=== PATIENT | female | born 1985 | race Caucasian/White ===

== ENCOUNTER → 2020-05-10 13:35 | Outpatient (BNVA) | payer MEDICAID, SELFPAY | PROVIDERS: PCP Internal Medicine; Visit Provider Internal Medicine Pulmonary Disease | DX: J45.50 Severe persistent asthma, uncomplicated (principal); Z91.09 Other allergy status, other than to drugs and biological substances | CPT/HCPCS: 99212 ==

== ENCOUNTER 2020-06-25 12:28 | Outpatient (REF) | payer MEDICAID, SELFPAY | END 2020-06-25 12:29 | disposition home or self-care (01) | LOC: HO.MDS 12:28 | PROVIDERS: PCP Internal Medicine; Visit Provider Internal Medicine Pulmonary Disease | DX: J45.50 Severe persistent asthma, uncomplicated (principal) | CPT/HCPCS: 96372; J0517 ==

== ENCOUNTER 2020-07-23 12:09 | Outpatient (REF) | payer MEDICAID, SELFPAY | END 2020-07-23 12:10 | disposition home or self-care (01) | LOC: HO.MDS 12:09 | PROVIDERS: PCP Internal Medicine; Visit Provider Internal Medicine Pulmonary Disease | DX: J45.50 Severe persistent asthma, uncomplicated (principal) | CPT/HCPCS: 96372; J0517 ==

== ENCOUNTER → 2020-08-14 13:26 | Outpatient (BNVA) | payer MEDICAID, SELFPAY | PROVIDERS: PCP Internal Medicine; Visit Provider Internal Medicine Pulmonary Disease | DX: J45.50 Severe persistent asthma, uncomplicated (principal); Z91.09 Other allergy status, other than to drugs and biological substances | CPT/HCPCS: 99212 ==

== ENCOUNTER 2020-09-02 12:47 | Outpatient (REF) | payer MEDICAID, SELFPAY | END 2020-09-02 12:48 | disposition home or self-care (01) | LOC: HO.MDS 12:47 | PROVIDERS: PCP Internal Medicine; Visit Provider Internal Medicine Pulmonary Disease | DX: J45.50 Severe persistent asthma, uncomplicated (principal) | CPT/HCPCS: 96372; J0517 ==

== ENCOUNTER 2020-10-28 12:44 | Outpatient (REF) | payer MEDICAID, SELFPAY | END 2020-10-28 12:45 | disposition home or self-care (01) | LOC: HO.MDS 12:44 | PROVIDERS: PCP Internal Medicine; Visit Provider Internal Medicine Pulmonary Disease | DX: J45.50 Severe persistent asthma, uncomplicated (principal) | CPT/HCPCS: 96372; J0517 ==

== ENCOUNTER 2020-12-10 11:06 | Emergency (ER) | payer MEDICAID, SELFPAY ==
--- NOTE | ~2020-12-10 | XR_ITS ---
EXAMINATION: XR CHEST CLINICAL INFORMATION: Left arm/chest pain COMPARISON: Previous chest x-ray May 2012 TECHNIQUE: 2 views of the chest were obtained. FINDINGS: The cardiac and mediastinal contours are normal. The lungs are clear. There is no pleural effusion or pneumothorax. Bony structures are unremarkable. XR/XR chest 2V IMPRESSION: Unremarkable examination.
[2020-12-10 11:45] VITALS: BP 132/79; PULSE 78; RESP 18; TEMP 37.3; O2SAT 98; BMI 28.3
--- NOTE | 2020-12-10 11:48 | ECG_ITS ---
Test Reason : CHEST PAIN Blood Pressure : / mmHG Vent. Rate : 071 BPM Atrial Rate : 071 BPM P-R Int : 114 ms QRS Dur : 082 ms QT Int : 390 ms P-R-T Axes : -04 046 025 degrees QTc Int : 423 ms Normal sinus rhythm Normal ECG No previous ECGs available Referred By: Generic ED Physician Electronically Signed By:NYA RIOJAS
[2020-12-10 12:30] LABS: MANUAL DIFF FLAG NO
[2020-12-10 12:33] LABS: Basophils Percent Auto 0.2 % (0-2); Hemoglobin 12.9 g/dl (12.0-16.0); Imm Gran Abs Auto 0.07 X10*3/uL (0.00-0.03); Imm Gran Pct Auto 0.6 % (0.0-0.4); Lymphocytes Absolute Auto 2.4 X10*3/uL (1.2-4.9); Mean Corpuscular HGB Conc 35.8 g/dl (31.0-35.0); Mean Corpuscular Hemoglobin 29.3 pg (27.0-33.0); Mean Corpuscular Volume 81.8 fL (80-98); Mean Platelet Volume 10.3 fL (9.4-12.3); Monocytes Absolute Auto 0.7 X10*3/uL (0.1-1.2); Monocytes Percent Auto 6.1 % (2-11); Neutrophils Absolute Auto 7.8 X10*3/uL (2.0-8.3); Neutrophils Percent Auto 71.1 % (45-73); Platelet Count 269 X10*3/uL (160-400); Red Cell Distribution Width 12.7 % (11.0-16.0)
[2020-12-10 12:49] LABS: Alanine Aminotransferase 9 U/L (0-31); Albumin Level 4.5 g/dL (3.5-5.0); Alkaline Phosphatase 89 U/L (39-117); Anion Gap 13 (12-20); Aspartate Amino Transferase 16 U/L (5-31); Bilirubin Total 0.4 mg/dL (0.0-1.0); Blood Urea Nitrogen 10 mg/dL (9-16); Calcium 9.3 mg/dL (8.4-10.2); Carbon Dioxide 21 mmol/L (22-29); Chloride 108 mmol/L (96-108); Creatinine Clr Calc Pharmacy 85.4; Estimated Glomerular Filt Rate > 60; Glucose Random 84 mg/dL (60-115); Potassium 3.8 mmol/L (3.3-5.1); Sodium 138 mmol/L (135-145); Total Protein 7.2 g/dL (6.5-8.0)
[2020-12-10 12:54] LABS: Troponin-I High Sensitivity < 3.5 ng/L (<3.5-17.0)
[2020-12-10 14:00] VITALS: BP 128/82; PULSE 73; RESP 18; TEMP 36.8; O2SAT 98
--- NOTE | 2020-12-10 14:08 | ED_ITS ---
HPI - Chest Pain General Chief Complaint: Chest Pain Stated Complaint: arm to chest pain, numb jaw t-3 Time Seen by Provider: 12/10/20 13:40 Source: patient Mode of arrival: ambulatory Limitations: no limitations History of Present Illness HPI narrative: 35-year-old female presenting to the ER for evaluation of medina sient arm and chest pain that she had 4 days ago. She reports while laying down on her right side and going to sleep she felt pain in her left arm that travel to her chest. At the same time she also had numbness and tingling of her mouth. This lasted for 5 minutes and completely resolved spontaneously. She has had no recurrence of the symptoms. She reports history of sinus and nasal surgery a nd sometimes has to breathe rapidly in order to get adequate breath. She denies any history of anxiety or panic attacks. She has no personal or family history of cardiac disease at an early age. She was talking to her therapist today who recommended she come to the ER for cardiac evaluation of the pain from her arm radiating into her chest that occurred 4 days ago. MD complaint: chest pain Onset (ago): day(s) (For) Timing of current episode: episodic Prior episodes: No Onset: during rest Pain location: left chest Pain radiation: left arm Severity: moderate Quality: sharp Relieving factors: rest Exacerbating factors: movement Treatment prior to arrival: none Risk Factors Coronary artery disease risk factors: none Thoracic aortic dissection risk factors: none Related Data On Oral Contraceptives: No Previous Rx's Medication Instructions Recorded benralizumab 30 mg/mL subcutaneous 30 mg SUBCUT Q4W 28 Days #1 ml 06/03/20 syringe (Fasenra) fluticasone 500 mcg-salmeterol 50 1 ea PO BID #60 ea 10/30/20 mcg/dose blistr powdr for inhalation (Advair Diskus) Allergies Allergy/AdvReac Type Severity Reaction Status Date / Time peanut Allergy Unknown Verified 12/10/20 11:44 Review of Systems Review of Systems: Constitutional: No Fever, No Chills ENT/Mouth: No sore throat, No Rhinorrhea, No Swallowing Difficulty Cardiovascular: + Chest Pain, No SOB, No Orthopnea, No Edema Respiratory: No Cough, No Sputum, No Wheezing, No dyspnea Gastrointestinal: No Nausea, No Vomiting, No Diarrhea, No abdominal Pain Musculoskeletal: No joint pain, No Myalgias Skin: No Skin Lesions, No rash Neuro: No Weakness, + Numbness, No Dizziness, No Headache Psych: + Anxiety/Panic, + Depression Heme/Lymph: No Bruising, No Lymphadenopathy PMFSH Past Medical History Medical History (Updated 12/10/20 @ 14:09 by TRACEY Roa) Patient denies medical problems Social History Social History (Updated 08/14/20 @ 13:27 by Ivanna Banuelos MA) Alcohol intake: never Patient Tobacco Use Status: Never used Tobacco Advance Directives: No Patient : No Physical Exam Vital Signs: Vital Signs: Last Vital Signs Temp 98.2 F 12/10/20 14:00 Pulse 73 12/10/20 14:00 Resp 18 12/10/20 14:00 BP 128/82 12/10/20 14:00 Pulse Ox 98 12/10/20 14:00 Body Mass Index 28.3 Appearance: Alert. Oriented X3. No acute distress. Eyes: Pupils equal, round and reactive to light. ENT: Pharynx normal. Neck: Normal inspection. Neck supple. CVS: Normal heart rate and rhythm. Pulses normal. Respiratory: No respiratory distress. Breath sounds normal. Abdomen: Soft and nontender. +BS x4 Skin: Skin warm and dry. Normal skin color. Normal skin turgor. No rashes. Extremities: No lower extremity edema. Neuro: Oriented X 3. No motor deficit. No sensory deficit. Course Course Course Narrative: 35 y/o female presenting with transient episode of arm pain radiating into her chest along with perioral numbness and tingling 4 days ago. No recurrence. Her VS and exam are normal. EKG is unremarkable. CXR clear and labs are unremarkable. Question whether this episode is related to hyperventilation. Does not seem to be cardiac or pulmonary in nature. She was reassured. She is clinically stable for discharge with plan to follow-up with her therapist and provider. Instructed to come back to the ER if she has recurrence of the symptoms or any new or concerning symptoms. Patient agrees with plan. MDM - Chest Pain Medical Records Data Attestation: I reviewed the patient's medical records. Lab Data Result diagrams: 12/10/20 12:06 12/10/20 12:06 Labs: Lab Results 12/10/20 12/10/20 12/10/20 Range/Units 12:06 12:06 12:06 WBC 11.0 H (4.8-10.8) X10*3/uL RBC 4.40 (4.20-5.50) X10*6/uL Hgb 12.9 (12.0-16.0) g/dl Hct 36.0 L (37-47) % MCV 81.8 (80-98) fL MCH 29.3 (27.0-33.0) pg MCHC 35.8 H (31.0-35.0) g/dl RDW 12.7 (11.0-16.0) % Plt Count 269 (160-400) X10*3/uL MPV 10.3 (9.4-12.3) fL Immature Gran % (Auto) 0.6 H (0.0-0.4) % Neut % (Auto) 71.1 (45-73) % Lymph % (Auto) 22.0 (20-40) % Hamblen % (Auto) 6.1 (2-11) % Eos % (Auto) 0.0 (0-4) % Baso % (Auto) 0.2 (0-2) % Lymph # (Auto) 2.4 (1.2-4.9) X10*3/uL Hamblen # (Auto) 0.7 (0.1-1.2) X10*3/uL Eos # (Auto) 0.0 (0.0-0.4) X10*3/uL Baso # (Auto) 0.0 (0.0-0.2) X10*3/uL Abs Immat Gran (auto) 0.07 H (0.00-0.03) X10*3/uL Absolute Neuts (auto) 7.8 (2.0-8.3) X10*3/uL Absolute Nucleated RBC 0.000 (0.0-0.012) X10*3/uL Nucleated RBC % (auto) 0.0 (0.0-0.2) /100WBC Sodium 138 (135-145) mmol/L Potassium 3.8 (3.3-5.1) mmol/L Chloride 108 (96-108) mmol/L Carbon Dioxide 21 L (22-29) mmol/L Anion Gap 13 (12-20) BUN 10 (9-16) mg/dL Creatinine 0.77 (0.5-1.4) mg/dL Estim Creat Clear Calc 85.4 Estimated GFR > 60 Random Glucose 84 (60-115) mg/dL Calcium 9.3 (8.4-10.2) mg/dL Total Bilirubin 0.4 (0.0-1.0) mg/dL AST 16 (5-31) U/L ALT 9 (0-31) U/L Alkaline Phosphatase 89 (39-117) U/L Troponin I High Sens < 3.5 (<3.5-17.0) ng/L Total Protein 7.2 (6.5-8.0) g/dL Albumin 4.5 (3.5-5.0) g/dL ECG Data ECG #1: Attestation: I personally reviewed and interpreted this ECG as follows: ECG interpretation date: 12/10/20 Interpretation: Normal sinus rhythm, heart rate 71 beats per minute, [place] interval normal 114 MS, normal QTC, no ST segment elevations or depressions. Core Measures AMI core measures followed: No Measure exclusions: not indicated Critical Care Time Critical Care Time Critical Care Time: No Discharge Plan Discharge Clinical Impression: Anxiety Patient Disposition: Home, Self-Care Instructions: Anxiety (ED) Additional Instructions: Your workup today was normal. Your symptoms are most likely due to hyperventilation. Follow-up with your doctor as needed. Continue with your therapist. If you develop new or worsening symptoms call 911 or come back to the ER for further evaluation. Prescriptions: No Action Fasenra 30 mg/mL syringe 30 mg subcut Q4W 28 Days Qty: 1 RF: 12 fluticasone propion-salmeterol [Advair Diskus] 500-50 mcg/dose blister with device 1 ea PO BID Qty: 60 RF: 3 Interventions: ED Discharge Assessment Last Done: 12/10/20 14:11 Discharge Date/Time: 12/10/20 14:17 Print Language: Amharic
--- NOTE | 2020-12-10 14:16 | PC.NURSE ---
patient a&ox3, currently no c/o pain or discomfort, vss, pt ready to discharge
== END 2020-12-10 14:17 | disposition home or self-care (01) ==
PROVIDERS: Emergency Provider Emergency Medicine; PCP Internal Medicine
DX: R07.9 Chest pain, unspecified (principal); F41.1 Generalized anxiety disorder; F43.0 Acute stress reaction; Z79.899 Other long term (current) drug therapy
CPT/HCPCS: 36415; 71046; 80053; 84484; 85025; 93005; 99284

== ENCOUNTER 2020-12-23 12:40 | Outpatient (REF) | payer MEDICAID, SELFPAY | END 2020-12-23 12:41 | disposition home or self-care (01) | LOC: HO.MDS 12:40 | PROVIDERS: PCP Internal Medicine; Visit Provider Internal Medicine Pulmonary Disease | DX: J45.50 Severe persistent asthma, uncomplicated (principal) | CPT/HCPCS: 96372; J0517 ==

== ENCOUNTER → 2021-04-04 10:31 | Outpatient (BNVA) | payer MEDICAID, SELFPAY | PROVIDERS: PCP Internal Medicine; Visit Provider Internal Medicine Pulmonary Disease | DX: J45.50 Severe persistent asthma, uncomplicated (principal); Z91.09 Other allergy status, other than to drugs and biological substances | CPT/HCPCS: 99212 ==

== ENCOUNTER → 2021-06-11 10:41 | Outpatient (BNVA) | payer MEDICAID, SELFPAY | PROVIDERS: PCP Internal Medicine; Visit Provider Internal Medicine Pulmonary Disease | DX: J45.50 Severe persistent asthma, uncomplicated (principal); Z91.09 Other allergy status, other than to drugs and biological substances | CPT/HCPCS: 99212 ==

== ENCOUNTER → 2021-09-17 10:17 | Outpatient (BNVA) | payer MEDICAID, SELFPAY | PROVIDERS: PCP Internal Medicine; Visit Provider Internal Medicine Pulmonary Disease | DX: J45.50 Severe persistent asthma, uncomplicated (principal); Z91.09 Other allergy status, other than to drugs and biological substances | CPT/HCPCS: 99212 ==

== ENCOUNTER 2021-12-23 12:35 | Outpatient (REF) | payer MEDICAID, SELFPAY ==
--- NOTE | ~2021-12-23 | US_ITS ---
EXAMINATION: US PELVIS CLINICAL INFORMATION: Excessive and frequent menstruation. COMPARISON: None TECHNIQUE: Ultrasound of the pelvis is performed using both transabdominal and transvaginal transducers along with Doppler. Transvaginal imaging is performed due to inadequate visualization transabdominally. FINDINGS: Uterus: The uterus is retroflexed and retroverted and measures 9.0 mL in length, 3.9 mL in AP and 6.3 cm wide. There is a suspicion for arcuate uterus on 3 images. The double wall endometrial thickness is 1.0 cm. The uterus is smooth in contour and has normal myometrial echogenicity. No visible fibroid. Adnexa: Both ovaries are visualized. There is normal color flow to the adnexa. There is no ovarian torsion. There is no pelvic ascites or fluid collection. Right ovary measures 3.1 x 1.7 x 1.6 cm and volume 4.4 mL. There are punctate echogenic foci seen. Left ovary measures 3.1 x 2.0 x 2.0 cm and volume 6.5 mL. There are several punctate echogenic foci. US/US pelvic and transvaginal IMPRESSION: Suspicion for arcuate uterus. No focal lesion seen. Bilateral punctate echogenic origin foci. No free fluid in the cul-de-sac.
== END 2021-12-23 12:36 | disposition home or self-care (01) ==
LOC: HO.US 12:35
PROVIDERS: Visit Provider Advanced Practice Midwife
DX: N92.0 Excessive and frequent menstruation with regular cycle (principal)
CPT/HCPCS: 76830; 76856

== ENCOUNTER → 2022-06-04 09:35 | Outpatient (BNVA) | payer MEDICAID, SELFPAY | PROVIDERS: PCP Internal Medicine; Visit Provider Internal Medicine Pulmonary Disease | DX: J45.50 Severe persistent asthma, uncomplicated (principal); J34.2 Deviated nasal septum; Z91.09 Other allergy status, other than to drugs and biological substances | CPT/HCPCS: 99212 ==

== ENCOUNTER 2022-12-09 10:04 | Outpatient (AMB) | payer MEDICAID, SELFPAY ==
[2022-12-09 10:06] VITALS: BP 110/67; PULSE 83; O2SAT 98; BMI 27.8
--- NOTE | 2022-12-09 10:06 | A.OFFVIS_ITS ---
Intake Vital Signs 12/09/22 10:06 Height 5 ft Weight 142 lb 3.17 oz BMI 27.8 BP 110/67 Blood Pressure Location Lt brachial Position Sitting Pulse 83 Pulse Source Doppler Pulse Oximetry (%) 98 Oxygen Delivery Method Room Air Intake Visit Reasons: Asthma Allergies peanut Allergy (Verified 12/09/22 10:09) Unknown HPI Asthma HPI Details 37-year-old lady, nonsmoker, followed fo r severe persistent allergic asthma and environmental allergies. She has been using Dupixent it and Advair 500 with excellent control of her underlying asthma symptoms. She denies any recent exacerbations. [facility] Medical History (Updated 06/04/22 @ 10:59 by Madhav Howard MD) Patient denies medical problems Social History Alcohol intake: never Patient Tobacco Use Status: Never used Tobacco Review of Systems Const Denies daytime sleepiness, Denies excessive sweating, Denies fatigue, Denies fever(s), Denies lethargy, Denies malaise, Denies night sweats, Denies snoring and Denies weight loss Eyes Denies blurry vision and Denies itchy eyes ENT Denies nasal congestion, Denies post nasal drip, Denies sinus pain, Denies sinus pressure and Denies other ( Thrush) Card Denies chest pain, Denies pedal edema, Denies dyspnea, Denies orthopnea and Denies paroxysmal nocturnal dyspnea Resp Denies cough, Denies hemoptysis, Denies excessive phlegm production, Denies dyspnea, Denies snoring and Denies wheezing GI Denies abdominal pain and Denies heartburn Musc Denies myalgias, Denies arthralgias and Denies joint swelling Skin/Breast Denies rash Neuro Denies memory loss and Denies seizure-like activity Psych Denies abnormal sleep pattern, Denies anxiety and Denies memory loss Endo Denies excessive sweating, Denies fatigue and Denies heat intolerance Jevon/Lymph Denies easy bruising Aller/Immun Denies itchy eyes, Denies seasonal rhinorrhea and Denies wheezing Physical Exam Vital Signs: Last Vital Signs Pulse 83 12/09/22 10:06 BP 110/67 12/09/22 10:06 Pulse Ox 98 12/09/22 10:06 Oxygen Delivery Method Room Air 12/09/22 10:06 BMI result Body Mass Index 27.8 Const General: no acute distress and alert Nutritional Appearance: not obese Orientation/consciousness: Other orientation findings ( oriented) HEENT Head: Yes atraumatic Eyes General: appearance normal, both eyes and all related structures Sclerae: sclerae normal EOM: EOMs intact bilaterally Neck Neck: Yes supple Lymphatic: no lymphadenopathy noted Resp Effort & Inspection: normal respiratory effort and no use of accessory muscles Auscultation: clear to auscultation bilaterally Cardio Rate: regular rate Rhythm: regular rhythm Heart sounds: no gallops, no murmurs and no rubs Skin General skin exam: other ( warm) Extrem General: No clubbing, No cyanosis and No edema Assessment & Plan Assessment & Plan (1) Severe persistent allergic asthma: Code(s): J45.50 - Severe persistent asthma, uncomplicated Plan: Excellent control on Dupixent and Advair. Continue current regimen. (2) Environmental allergies: Code(s): Z91.09 - Other allergy status, other than to drugs and biological substances Plan: Well controlled on Dupixent. Continue current regimen. Coding Level of Care Code Est Pt Level 4 (13998) Diagnoses Severe persistent allergic asthma J45.50 Environmental allergies Z91.09
== END 2022-12-09 10:20 | disposition home or self-care (01) ==
PROVIDERS: PCP Internal Medicine; Visit Provider Internal Medicine Pulmonary Disease
DX: J45.50 Severe persistent asthma, uncomplicated (principal); Z91.09 Other allergy status, other than to drugs and biological substances
CPT/HCPCS: 99214

== ENCOUNTER → 2022-12-09 10:04 | Outpatient (BNVA) | payer MEDICAID, SELFPAY | PROVIDERS: PCP Internal Medicine; Visit Provider Internal Medicine Pulmonary Disease | DX: J45.50 Severe persistent asthma, uncomplicated (principal); Z91.09 Other allergy status, other than to drugs and biological substances; Z79.620 Long term (current) use of immunosuppressive biologic | CPT/HCPCS: 99212 ==

== ENCOUNTER 2023-07-15 13:24 | Outpatient (AMB) | payer MEDICAID, SELFPAY ==
[2023-07-15 13:28] VITALS: BP 102/62; PULSE 98; O2SAT 98; BMI 27.9
--- NOTE | 2023-07-15 13:28 | MHC.OFFVIS ---
Vital Signs 07/15/23 13:28 Height 5 ft Weight 143 lb BMI 27.9 BP 102/62 Blood Pressure Location Rt brachial Position Sitting Pulse 98 Pulse Source Doppler Pulse Oximetry (%) 98 Oxygen Delivery Method Room Air Intake Visit Reasons: asthma Bereavement Counselor Required: Yes Bereavement Counselor Name: Jackie Dai Akira Allergies peanut Allergy (Verified 07/15/23 13:34) Unknown HPI HPI asthma: Details: 37-year-old lady, nonsmoker, followed for severe persistent allergic asthma and environmental allergies. She has been using Dupixent it and Advair 500 with excellent control of her underlying asthma symptoms. She did have a recent mild exacerbation over the last 7 days that is getting better. [facility] Medical History (Updated 06/04/22 @ 10:59 by Madhav Howard MD) Patient denies medical problems Social History Alcohol intake: never Patient Tobacco Use Status: Never used Tobacco Review of Systems Const Denies daytime sleepiness, Denies excessive sweating, Denies fatigue, Denies fever(s), Denies lethargy, Denies malaise, Denies night sweats, Denies snoring and Denies weight loss Eyes Denies blurry vision and Denies itchy eyes ENT Denies nasal congestion, Denies post nasal drip, Denies sinus pain, Denies sinus pressure and Denies other ( Thrush) Card Denies chest pain, Denies pedal edema, Denies dyspnea, Denies orthopnea and Denies paroxysmal nocturnal dyspnea Resp Denies cough, Denies hemoptysis, Denies excessive phlegm production, Denies dyspnea, Denies snoring and Denies wheezing GI Denies abdominal pain and Denies heartburn Musc Denies myalgias, Denies arthralgias and Denies joint swelling Skin/Breast Denies rash Neuro Denies memory loss and Denies seizure-like activity Psych Denies abnormal sleep pattern, Denies anxiety and Denies memory loss Endo Denies excessive sweating, Denies fatigue and Denies heat intolerance Jevon/Lymph Denies easy bruising Aller/Immun Denies itchy eyes, Denies seasonal rhinorrhea and Denies wheezing Physical Exam Vital Signs: Last Vital Signs Pulse 98 07/15/23 13:28 BP 102/62 07/15/23 13:28 Pulse Ox 98 07/15/23 13:28 Oxygen Delivery Method Room Air 07/15/23 13:28 BMI result Body Mass Index 27.9 Const General: no acute distress and alert Nutritional Appearance: not obese Orientation/consciousness: Other orientation findings ( oriented) HEENT Head: Yes atraumatic Eyes General: appearance normal, both eyes and all related structures Sclerae: sclerae normal EOM: EOMs intact bilaterally Neck Neck: Yes supple Lymphatic: no lymphadenopathy noted Resp Effort & Inspection: normal respiratory effort and no use of accessory muscles Auscultation: clear to auscultation bilaterally Cardio Rate: regular rate Rhythm: regular rhythm Heart sounds: no gallops, no murmurs and no rubs Skin General skin exam: other ( warm) Extrem General: No clubbing, No cyanosis and No edema Assessment & Plan Assessment & Plan (1) Severe persistent allergic asthma: Code(s): J45.50 - Severe persistent asthma, uncomplicated Category: Medical Plan: Good control on current regimen of Advair 500 and Dupixent. Continue current regimen. Will treat exacerbation with a course of prednisone. (2) Environmental allergies: Code(s): Z91.09 - Other allergy status, other than to drugs and biological substances Category: Medical Plan: Well controlled on Dupixent. Continue current regimen. Medications: New prednisone 40 mg (2 x 20 mg) PO DAILY 10 tabs 0RF Coding Level of Care Code Est Pt Level 4 (94156) Diagnoses Severe persistent allergic asthma J45.50 Environmental allergies Z91.09
== END 2023-07-15 13:45 | disposition home or self-care (01) ==
PROVIDERS: PCP Internal Medicine; Referring Provider Internal Medicine; Visit Provider Internal Medicine Pulmonary Disease
DX: J45.50 Severe persistent asthma, uncomplicated (principal); Z91.09 Other allergy status, other than to drugs and biological substances
CPT/HCPCS: 99214

== ENCOUNTER → 2023-07-15 13:24 | Outpatient (BNVA) | payer MEDICAID, SELFPAY | PROVIDERS: PCP Internal Medicine; Visit Provider Internal Medicine Pulmonary Disease | DX: J45.50 Severe persistent asthma, uncomplicated (principal); Z91.09 Other allergy status, other than to drugs and biological substances | CPT/HCPCS: 99212 ==

== ENCOUNTER 2023-11-25 16:42 | Outpatient (REF) | payer MEDICAID, SELFPAY ==
[2023-11-26 12:13] LABS: CT PCR NOT DETECTED (Not Detect.); NG PCR NOT DETECTED (Not Detect.)
[2023-11-26 14:24] LABS: Bacterial Vaginosis PCR POSITIVE (Negative); Candida Group PCR DETECTED (Not Detect); Candida glab krusei PCR DETECTED (Not Detect); Trichomonas vaginalis PCR NOT DETECTED (Not Detect)
== END 2023-11-25 16:43 | disposition home or self-care (01) ==
LOC: HO.HHCLNP 16:42
PROVIDERS: Visit Provider Family Medicine
DX: N76.0 Acute vaginitis (principal); B96.89 Other specified bacterial agents as the cause of diseases classified elsewhere
CPT/HCPCS: 0352U; 87086; 87491; 87591

== ENCOUNTER 2024-01-06 09:09 | Outpatient (REF) | payer MEDICAID, SELFPAY ==
[2024-01-08 22:43] LABS: TS Negative Control Passed; TS Panel A 3; TS Panel B 0; TS Positive Control Passed; TSpotTB Negative (Negative)
== END 2024-01-06 09:10 | disposition home or self-care (01) ==
LOC: HO.HHCL 09:09
PROVIDERS: Visit Provider Internal Medicine
DX: Z02.89 Encounter for other administrative examinations (principal)
CPT/HCPCS: 36415; 86481

== ENCOUNTER 2024-01-25 10:02 | Outpatient (AMB) | payer MEDICAID, SELFPAY ==
--- NOTE | 2024-01-25 10:08 | A.OFFVIS_ITS ---
Vital Signs 01/25/24 10:09 Height 5 ft Weight 139 lb 15.896 oz BMI 27.3 BP 102/62 Blood Pressure Location Lt brachial Position Sitting Pulse 88 Pulse Source Doppler Pulse Oximetry (%) 99 Oxygen Delivery Method Room Air Intake Visit Reasons: Asthma Lock Operator Required: Yes Lock Operator Name: Jackie Dai Akira Allergies peanut Allergy (Verified 01/25/24 10:16) Unknown HPI HPI Asthma: Details: 38-year-old lady, nonsmoker, followed for severe persistent allergic asthma and environmental allergies. She has been previously using Dupixent it and Advair 500 with excellent control of her underlying asthma symptoms. , however over the last few months she stopped receiving her Dupixent injections in her symptom control has worsened. Now she complains of wheezing. [facility] Medical History (Updated 06/04/22 @ 10:59 by Madhav Howard MD) Patient denies medical problems Social History Alcohol intake: never Patient Tobacco Use Status: Never used Tobacco Review of Systems Const Denies daytime sleepiness, Denies excessive sweating, Denies fatigue, Denies fever(s), Denies lethargy, Denies malaise, Denies night sweats, Denies snoring and Denies weight loss Eyes Denies blurry vision and Denies itchy eyes ENT Denies nasal congestion, Denies post nasal drip, Denies sinus pain, Denies sinus pressure and Denies other ( Thrush) Card Denies chest pain, Denies pedal edema, Denies dyspnea, Denies orthopnea and Denies paroxysmal nocturnal dyspnea Resp Denies cough, Denies hemoptysis, Denies excessive phlegm production, Denies dyspnea, Denies snoring and Reports wheezing GI Denies abdominal pain and Denies heartburn Musc Denies myalgias, Denies arthralgias and Denies joint swelling Skin/Breast Denies rash Neuro Denies memory loss and Denies seizure-like activity Psych Denies abnormal sleep pattern, Denies anxiety and Denies memory loss Endo Denies excessive sweating, Denies fatigue and Denies heat intolerance Jevon/Lymph Denies easy bruising Aller/Immun Denies itchy eyes, Denies seasonal rhinorrhea and Reports wheezing Physical Exam Vital Signs: Last Vital Signs Pulse 88 01/25/24 10:09 BP 102/62 11/19/24 10:09 Pulse Ox 99 01/25/24 10:09 Oxygen Delivery Method Room Air 01/25/24 10:09 BMI result Body Mass Index 27.3 Const General: no acute distress and alert Nutritional Appearance: not obese Orientation/consciousness: Other orientation findings ( oriented) HEENT Head: Yes atraumatic Eyes General: appearance normal, both eyes and all related structures Sclerae: sclerae normal EOM: EOMs intact bilaterally Neck Neck: Yes supple Lymphatic: no lymphadenopathy noted Resp Effort & Inspection: normal respiratory effort and no use of accessory muscles Auscultation: clear to auscultation bilaterally Cardio Rate: regular rate Rhythm: regular rhythm Heart sounds: no gallops, no murmurs and no rubs Skin General skin exam: other ( warm) Extrem General: No clubbing, No cyanosis and No edema Assessment & Plan Assessment & Plan (1) Severe persistent allergic asthma: Code(s): J45.50 - Severe persistent asthma, uncomplicated Category: Medical Plan: Suboptimal control off Dupixent. Continue Advair and albuterol MDI. Restart Dupixent. Will treat acute exacerbation with a course of prednisone and azithromycin. (2) Environmental allergies: Code(s): Z91.09 - Other allergy status, other than to drugs and biological substances Category: Medical Plan: Expect to improve after restarting Dupixent. Medications: New azithromycin For 250 mg dose pack: take 500 mg today (day 1), then 250 mg for 4 days (days 2-5) PO 6 tabs 0RF Refilled prednisone 40 mg (2 x 20 mg) PO DAILY 10 tabs 0RF Coding Level of Care Code Est Pt Level 4 (97849) Complex EM visit Add On G2211 Diagnoses Severe persistent allergic asthma J45.50 Environmental allergies Z91.09
[2024-01-25 10:09] VITALS: BP 102/62; PULSE 88; O2SAT 99; BMI 27.3
== END 2024-01-25 10:31 | disposition home or self-care (01) ==
PROVIDERS: PCP Internal Medicine; Visit Provider Internal Medicine Pulmonary Disease
DX: J45.50 Severe persistent asthma, uncomplicated (principal); Z91.09 Other allergy status, other than to drugs and biological substances
CPT/HCPCS: 99214

== ENCOUNTER → 2024-01-25 10:02 | Outpatient (BNVA) | payer MEDICAID, SELFPAY | PROVIDERS: PCP Internal Medicine; Visit Provider Internal Medicine Pulmonary Disease | DX: J45.50 Severe persistent asthma, uncomplicated (principal); Z91.09 Other allergy status, other than to drugs and biological substances | CPT/HCPCS: 99212 ==

== ENCOUNTER 2024-03-03 07:56 | Outpatient (REF) | payer MEDICAID, SELFPAY ==
[2024-03-03 11:49] LABS: Hematocrit 41.6 % (37.0-47.0); Hemoglobin 14.3 g/dl (12.0-16.0); Mean Corpuscular HGB Conc 34.4 g/dl (31.0-35.0); Mean Corpuscular Hemoglobin 28.7 pg (27.0-33.0); Mean Corpuscular Volume 83.4 fL (80.0-98.0); Mean Platelet Volume 10.8 fL (9.4-12.3); Platelet Count 293 X10*3/uL (160-400); Red Blood Count 4.99 X10*6/uL (4.20-5.50); Red Cell Distribution Width 12.9 % (11.0-16.0); White Blood Count 9.4 X10*3/uL (4.8-10.8)
[2024-03-03 12:12] LABS: Estimated Average Glucose 88 mg/dL; Hemoglobin A1C 97.7038 umol/L; Hemoglobin A1c % 4.7 % (<6.0); Total Hemoglobin (HGBA1C) 3531.9693 umol/L
[2024-03-03 12:24] LABS: Alanine Aminotransferase 15 U/L (0-31); Albumin Level 4.3 g/dL (3.5-5.0); Alkaline Phosphatase 82 U/L (39-117); Anion Gap 11 (12-20); Aspartate Amino Transferase 25 U/L (5-31); Bilirubin Direct 0.2 mg/dL (0.0-0.5); Bilirubin Total 0.5 mg/dL (0.0-1.0); Blood Urea Nitrogen 12 mg/dL (9-16); Calcium 9.2 mg/dL (8.4-10.2); Carbon Dioxide 22 mmol/L (22-29); Chloride 106 mmol/L (96-108); Cholesterol 212 mg/dL (<200); Estimated Glomerular Filt Rate > 60; Glucose Random 77 mg/dL (60-115); HDL Cholesterol 60 mg/dL (>40); LDL Cholesterol Calculated 125 mg/dL (<100); Potassium 3.6 mmol/L (3.3-5.1); Sodium 135 mmol/L (135-145); Total Protein 7.3 g/dL (6.5-8.0); Triglycerides 137 mg/dL (<150)
[2024-03-03 12:26] LABS: Free T4 (Free Thyroxine) 0.92 ng/dL (0.71-1.85); Thyroid Stimulating Hormone 2.62 uIU/mL (0.32-4.0); Vitamin D 25-OH Total 51.1 ng/mL (>30)
== END 2024-03-03 07:57 | disposition home or self-care (01) ==
LOC: HO.HHCL 07:56
PROVIDERS: Visit Provider Family Medicine
DX: Z00.00 Encounter for general adult medical examination without abnormal findings (principal)
CPT/HCPCS: 36415; 80048; 80061; 80076; 82306; 83036; 84439; 84443; 85027

== ENCOUNTER 2024-05-17 09:29 | Outpatient (AMB) | payer MEDICAID, SELFPAY ==
[2024-05-17 09:46] VITALS: BP 104/60; PULSE 64; O2SAT 99; BMI 26.9
--- NOTE | 2024-05-17 09:46 | MHC.OFFVIS ---
Vital Signs 05/17/24 09:46 Height 5 ft Weight 138 lb BMI 26.9 BP 104/60 Blood Pressure Location Lt brachial Position Sitting Pulse 64 Pulse Source Doppler Pulse Oximetry (%) 99 Oxygen Delivery Method Room Air Intake Visit Reasons: Asthma Wire Straightening Machine Operator Required: Yes Wire Straightening Machine Operator Name: Jackie Dai Akira Allergies peanut Allergy (Verified 05/17/24 09:49) Unknown HPI HPI Asthma: Details: 38-year-old lady, nonsmoker, followed for severe persistent allergic asthma and environmental allergies. After the last office visit she was restarted on Dupixent with significantly improved symptom control, however she now she has been experiencing allergic rhinitis over the last few weeks. [facility] Medical History (Updated 06/04/22 @ 10:59 by Madhav Howard MD) Patient denies medical problems Social History (Updated 05/17/24 @ 09:52 by Jackie Tyson Philip) Alcohol intake: never Patient Tobacco Use Status: Current someday Tobacco user Tobacco use type: Cigarette Cigarettes Per Day: 2 Review of Systems Const Denies daytime sleepiness, Denies excessive sweating, Denies fatigue, Denies fever(s), Denies lethargy, Denies malaise, Denies night sweats, Denies snoring and Denies weight loss Eyes Denies blurry vision and Denies itchy eyes ENT Reports nasal congestion, Reports post nasal drip, Denies sinus pain, Denies sinus pressure and Denies other ( Thrush) Card Denies chest pain, Denies pedal edema, Denies dyspnea, Denies orthopnea and Denies paroxysmal nocturnal dyspnea Resp Denies cough, Denies hemoptysis, Denies excessive phlegm production, Denies dyspnea, Denies snoring and Denies wheezing GI Denies abdominal pain and Denies heartburn Musc Denies myalgias, Denies arthralgias and Denies joint swelling Skin/Breast Denies rash Neuro Denies memory loss and Denies seizure-like activity Psych Denies abnormal sleep pattern, Denies anxiety and Denies memory loss Endo Denies excessive sweating, Denies fatigue and Denies heat intolerance Jevon/Lymph Denies easy bruising Aller/Immun Denies itchy eyes, Denies seasonal rhinorrhea and Denies wheezing Physical Exam Vital Signs: Last Vital Signs Pulse 64 05/17/24 09:46 BP 104/60 05/17/24 09:46 Pulse Ox 99 05/17/24 09:46 Oxygen Delivery Method Room Air 05/17/24 09:46 BMI result Body Mass Index 26.9 Const General: no acute distress and alert Nutritional Appearance: not obese Orientation/consciousness: Other orientation findings ( oriented) HEENT Head: Yes atraumatic Eyes General: appearance normal, both eyes and all related structures Sclerae: sclerae normal EOM: EOMs intact bilaterally Neck Neck: Yes supple Lymphatic: no lymphadenopathy noted Resp Effort & Inspection: normal respiratory effort and no use of accessory muscles Auscultation: clear to auscultation bilaterally Cardio Rate: regular rate Rhythm: regular rhythm Heart sounds: no gallops, no murmurs and no rubs Skin General skin exam: other ( warm) Extrem General: No clubbing, No cyanosis and No edema Assessment & Plan Assessment & Plan (1) Severe persistent allergic asthma: Code(s): J45.50 - Severe persistent asthma, uncomplicated Category: Medical Plan: Significantly improved on Dupixent. Continue current regimen of Advair, Dupixent, and albuterol MDI. (2) Environmental allergies: Code(s): Z91.09 - Other allergy status, other than to drugs and biological substances Category: Medical Plan: Significantly improved on Dupixent, though now with allergic rhinitis, will add nasal ipratropium. Continue Dupixent. Medications: New ipratropium bromide administer into each nostril 2 sprays intranasal TID-QID PRN 15 mL 6RF allergy symptoms Coding Level of Care Code Est Pt Level 4 (48391) Diagnoses Severe persistent allergic asthma J45.50 Environmental allergies Z91.09
--- OUTSIDE RECORDS SUMMARY | 2024-05-17 10:21 | XMS_ITS | Encounter Summary ---
Author Organization [employer] Address [address] [facility] [facility] [address] [place] [address] Care Team Providers Care Sap Abap Programmer Name Role Phone Jim Padilla MD Primary Care Provide r Encounter Details Date Type Department Care Team (Latest Contact Info) Description 05/12/[address] [facility] CONVERSIONS Dental, Provider, DDS Social History Tobacco Use Types Packs/Day Years Used Date Smoking Tobacco: Never Assessed Comments Unknown Sex and Gender Information Value Date Recorded Sex Assigned at Female 01/05/2022 10:19 AM EDT Legal Sex Female 10:19 AM EDT Gender Identity Female 01/05/2022 10:19 AM EDT Sexual Orientation Straight 01/05/2022 10 :19 AM EDT documented as of this encounter Plan of Treatment Upcoming Encounters Date Type Department Care Team ( st Contact Info) Description 05/19/2024 11:45 AM EDT Office Visit [facility] MEDICINE [address] [place] [phone] Rubens Gilbert MD [address] [place] [address] [phone] 08/17/2024 10:15 AM EDT Office Visit [facility] MEDICINE [address] [place] [address] [phone] Jim Padilla MD [address] [place] [phone] documented as of this encounter Visit Diagnoses Not on filedocumented in this encounter Care Teams Sap Abap Programmer Relationship Specialty Start Date End Date Jim Padilla MD [address] [place] [address] PCP - General Internal Medicine 07/18/14 documented as of this encounter
--- OUTSIDE RECORDS SUMMARY | 2024-05-17 10:21 | XMS_ITS | Encounter Summary ---
Author Organization [employer] Address [address] [facility] [address] [place] [address] Care Team Providers Care Tire Rebuilder Name Role Phone Jim Padilla MD Primary Care Provide r Reason for Visit * Reason Onset Date Comments Appointment 08/21/2022 Encounter Details Date Type Department Care Team ([facility] st Contact Info) Description 08/21/2022 Telephone [facility] ADULT DENTAL [address] [place], [place] [phone] Barak Santa DDS [address] [place], [place] [phone] Appointment Social History Tobacco Use Types Packs/Day Years Used Date Smoking Tobacco: Former Cigarettes 0.3 10 Passive Smoke Exposure: Past Smokeless Tobacco: Never Alcohol Use Standard Drinks/Week Comments Never 0 (1 standard drink = 0.6 oz pur e alcohol) Depression Answer Date Recorded Patient Health Questionnaire-9 Score 0 04/14/2022 Depression Answer Date Recorded Patient Health Questionnaire-2 Score 0 04/14/2022 Comments Unknown Sex and Gender Information Value Date Recorded Sex Assigned at Female 01/05/2022 10:19 AM EDT Legal Sex Female 10:19 AM EDT Gender Identity Female 01/05/2022 10:19 AM EDT Sexual Orientation Straight 01/05/2022 10 :19 AM EDT COVID-19 Exposure Response Date Recorded In the last 10 days, have yo u been in contact with someone who was confirmed or suspected to have Coronavirus/COVID-19? No / Unsure 08/21/2022 9:37 AM EDT documented as of this encounter Miscellaneous Notes * Telephone Encounter - Carina Laird - 08/21/2022 12:39 PM EDT Appt requested for filling. Patient states appt requested a while back and states that filling has fallen out and experiencing a lot of sensitivity (no pain) when eating hot and cold and would like appt scheduled with provider for yazdanism DR documented in this encounter Plan of Treatment Upcoming Encounters Date Type Department Care Team (Late st Contact Info) Description 05/19/2024 11:45 AM EDT Office Visit [facility] MEDICINE [address] [place] [address] Rubens Gilbert MD [address] [place] [address] 08/17/2024 10:15 AM EDT Office Visit [facility] [address] [facility] [place] [address] Jim Padilla MD [address] [place] [address] documented as of this encounter Visit Diagnoses Not on filedocumented in this encounter Additional Health Concerns Assessment Noted Time PHQ-9 Depression Total Score: 0 04/14/19 23 9:48 AM EST documented as of this encounter Care Teams Tire Rebuilder Relationship Specialty Start Date End Date Jim Padilla MD [facility] [place] [address] PCP - General Internal Medicine 07/18/14 documented as of this encounter
--- OUTSIDE RECORDS SUMMARY | 2024-05-17 10:21 | XMS_ITS | Encounter Summary ---
Author Organization [employer] Address [address] [place] [address] Care Team Providers Care Card Folder Name Role Phone Jim Padilla MD Primary Care Provide r Encounter Details Date Type Department Care Team (Late st Contact Info) Description 04/28/2024 9:00 AM EST Office Visit [facility] OPTOMETRY [address] [place] [address] Ángel, Mari, OD [address] [place] [address] Myopia of both eyes (Primary Dx) Social History Tobacco Use Types Packs/Day Years Used Date Smoking Tobacco: Some Days Cigarettes 0.3 10 Passive Smoke Exposure: Current Smokeless Tobacco: Never Alcohol Use Standard Drinks/Week Comments Never 0 (1 standard drink = 0.6 oz pur e alcohol) Depression Answer Date Recorded Patient Health Questionnaire-9 Score 5 08/24/2023 Patient Health Questionnaire-9 Score 5 08/24/2023 Last PHQ-9: Questionnaire Data Not on file 0 08/24/2023 Housing Stability Answer Date Recorded What is your housing situation today? I have madeline anderson 08/24/[address] you li ve. Do you have problems with any of the following? None of the above 08/24/2023 Food Insecurity Answer Date Recorded Within the past 12 months, y ou worried that your food would run out before you got money to buy more: Sometimes True 2023 Within the past 12 months,th e food you bought just didn't last and you didn't have enough money to get more: Sometimes True 08/24/2023 Transportation Answer Date Recorded In the past 12 months, has l ack of transportation kept you from medical appts, meetings, work or from getting things needed for daily living? No 08/24/2023 Utilities Answer Date Recorded In the past 12 months, has t he electric, gas, oil or water company threatened to shut off services in your home? No 08/24/2023 Depression Answer Date Recorded Patient Health Questionnaire-2 Score 2 08/24/2023 Internet Access Answer Date Recorded Internet Access Q1 Yes 02/11/2024 Internet Access Q2 I do not want or need it 08/2023 Comments Unknown Sex and Gender Information Value Date Recorded Sex Assigned at Female 01/05/2022 10:19 AM EDT Legal Sex Female 10:19 AM EDT Gender Identity Female 01/05/2022 10:19 AM EDT Sexual Orientation Straight 01/05/2022 10 :19 AM EDT documented as of this encounter Progress Notes * Mari Neal OD - 04/28/2024 9:00 AM EST MH glasses were dispensed. documented in this encounter Plan of Treatment Upcoming Encounters Date Type Department Care Team (Late st Contact Info) Description 05/19/2024 11:45 AM EDT Office Visit [facility] MEDICINE [address] [place] [phone] Rubens Gilbert MD [address] [place] [phone] 08/17/2024 10:15 AM EDT Office Visit [facility] MEDICINE [address] [place] [address] [phone] Jim Padilla MD [address] [place] [phone] documented as of this encounter Visit Diagnoses Diagnosis Myopia of both eyes- Primary documented in this encounter Additional Health Concerns Assessment Noted Time PHQ-9 Depression Total Score: 5 08/24/19 24 11:42 AM EDT documented as of this encounter Care Teams Card Folder Relationship Specialty Start Date End Date Jim Padilla MD [address] [place] [phone] PCP - General Internal Medicine 07/18/14 documented as of this encounter
--- OUTSIDE RECORDS SUMMARY | 2024-05-17 10:21 | XMS_ITS | Encounter Summary ---
Author Organization [employer] Address [address] [place] [address] Care Team Providers Care Welt Sewer Name Role Phone Jim Padilla MD Primary Care Provide r Encounter Details Date Type Department Care Team (Latest Contact Info) Description 04/05/2020 Abstract [facility] CONVERSIONS Dental, Provider, DDS Social History Tobacco [...] Description 05/19/2024 11:45 AM EDT Office Visit [facility] MEDICINE [address] [place] [phone] Rubens Gilbert MD [address] [place] [phone] 08/17/2024 10:15 AM EDT Office Visit [facility] MEDICINE [address] [place] [phone] Jim Padilla MD [address] [place] [phone] documented as of this encounter Visit Diagnoses Not on filedocumented in this encounter Care Teams Welt Sewer Relationship Specialty Start Date End Date Jim Padilla MD [address] [place] [address] PCP - General Internal Medicine 07/18/14 documented as of this encounter
--- OUTSIDE RECORDS SUMMARY | 2024-05-17 10:21 | XMS_ITS | Clinical Summary ---
Author Organization [employer] Address [address] [place] [address] Care Team Providers Care Stitching Machine Operator Name Role Phone Jim Padilla MD Primary Care Provide r Allergies Active Allergy Reactions Criticality Noted Date Comments Grass Pollen(K-O-R-T-Swt Alverto) 06/08/2017 Peanut Butter Flavoring Agent (Non-Screening) 06/08/2017 Procainamide Other reaction(s): unspecified Medications DULoxetine (Cymbalta) [address] capsule take 1 capsule by oral route every day in the afternoon Active Dupixent 300 MG/2ML injection 3 Active Multiple Vitamins-Mineral s (PreserVision AREDS 2) capsule Take 1 capsule by mouth 2 times daily. Take with food. 60 capsule 11 3 Active methylphenidate ER (Concerta) 27 MG CR tablet Take 1 tablet by mouth at bed time. Active traZODone (Desyrel) 50 MG tablet Take by mouth. Activ e LORazepam (Ativan) 0.5 MG tablet take 1 Tablet by oral route 2 times every day as needed Active cetirizine (ZyrTEC) 10 MG tabletIndication s:Acute maxillary sinusitis, recurrence not specified TAKE 1 TABLET BY MOUTH EVERY MORNING 90 tablet 3 Active Fluticasone-Salm eterol (Advair Diskus) 500-50 MCG/ACT aerosol powder Inhale 1 puff every 12 (twelve) hours. 0 Active biotin 5 MG tabletIndication s:Telogen effluvium,Onycho schizia Take 1 tablet (5 mg) by mouth in the morning. 90 tablet 2 3 Active metroNIDAZOLE (Metrogel) 0.75 % vaginal gelIndications:B acterial Vaginosis Insert one applicator into vagina at bedtime for 7 nights 45 g 4 Active clotrimazole (Lotrimin) 1 % vaginal creamIndications :Vulvovaginal Candidiasis Insert one applicator per vagina at bedtime for 7 nights 45 g 4 Active albuterol (2.5 MG/3ML) 0.083% nebulizer solution Take 3 mL (2.5 mg) by nebulization every 4 (four) hours if needed for wheezing. 75 mL 3 4 025 Active albuterol (ProAir HFA) 108 (90 Base) MCG/ACT inhalerIndicatio ns:Moderate persistent asthma without complication Inhale 2 puffs every 6 (six) hours if needed for wheezing. 18 g 3 4 Active Active Problems Problem Noted Date Diagnosed Date Overweight 08/24/2023 Assessment & Plan (08/24/2023 11:44 AM EDT): Patient has been counseled and educated about diet and exercise. 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 Cutaneous skin tags 07/30/2022 Assessment & Plan (07/30/2022 12:02 PM EDT): Will refer to Adult Derm clinic Dental caries 05/29/2022 Dental calculus 05/29/2022 Preventative health care 04/14/2022 Assessment & Plan (02/22/2024 11:46 AM EST): Pap smear 10/2021 Negative HPV neg 5 yr with co test recommended Assessment & Plan (04/14/2022 9:56 AM EST): Pap smear 10/2021 Negative HPV neg 5 yr with co test recommended Moderate persistent asthma without complication 07/27/2017 Assessment & Plan (02/22/2024 11:45 AM EST): Patient here for a follow up Reports no recent exacerbations She has severe allergic Asthma diagnosed as a child in [place] [facility] [place] [place]. Pt reports symptoms at least once a month. Currently on a regimen of: Advair Diskus 500/50 1 puff BID Dupixent and Pro-air MDi 1 to 2 puffs QID prn. Pt no longer following with an clinical application specialist Pt is also under the care of Pulmonology last note on record from Dr Howard 01/25/2024 Assessment & Plan (08/24/2023 11:43 AM EDT): Patient here for a follow up Reports no recent exacerbations She has severe allergic Asthma diagnosed as a child in her [employer]. Pt reports symptoms at least once a month. Currently on a regimen of: Advair Diskus 500/50 1 puff BID Dupixent and Pro-air MDi 1 to 2 puffs QID prn. Pt no longer following with an clinical application specialist Pt is also under the care of Pulmonology last note on record from Dr Howard 07/2023 Assessment & Plan (02/16/2023 2:16 PM EST): Patient here for a follow up Reports no recent exacerbations She has severe allergic Asthma diagnosed as a child in her [employer] [place] [place]. Pt reports symptoms at least once a month. Currently on a regimen of: Advair Diskus 500/50 1 puff BID Dupixent and Pro-air MDi 1 to 2 puffs QID prn. Pt no longer following with an clinical application specialist Pt is also under the care of Pulmonology last note on record from 12/09/2022 Assessment & Plan (07/30/2022 11:22 AM EDT): Patient here for a follow up Reports no recent exacerbations She has severe allergic Asthma diagnosed as a child in her [employer] [place] [place]. Pt reports symptoms at least once a month. Currently on a regimen of: Advair Diskus 500/50 1 puff BID Dupixent and Pro-air MDi 1 to 2 puffs QID prn. Pt is following with an clinical application specialist is undergoing immunotherapy Pt is also under the care of Pulmonology last note on record from 09/17/2021 Assessment & Plan (04/14/2022 9:53 AM EST): Patient here for a follow up Reports no recent exacerbations She has severe allergic Asthma diagnosed as a child in her [employer] [place] [place]. Pt reports symptoms at least once a month. Currently on a regimen of: Advair Diskus 500/50 1 puff BID Dupixent and Pro-air MDi 1 to 2 puffs QID prn. Pt is following with an clinical application specialist is undergoing immunotherapy Pt is also under the care of Pulmonology last note on record from 09/17/2021 Allergic rhinitis 05/17/2012 Depressive disorder 05/17/2012 Assessment & Plan (08/24/2023 11:43 AM EDT): doing well Pt follows with psychiatry and has had improvement/non-recurrence of presenting sx since taking Trazodone 50 Concerta 27 mg Duloxetine 30 mg lorazepam 0.5mg as needed for panic attacks. Her therapist is Felicia Barger, and Psychiatrist is Bari Allen at [facility] She will cont to f/u w/ therapist and psychiatry Assessment & Plan (02/16/2023 2:14 PM EST): doing well Pt follows with psychiatry and has had improvement/non-recurrence of presenting sx since taking Trazodone 50 Concerta 27 mg Duloxetine 30 mg lorazepam 0.5mg as needed for panic attacks. Her therapist is Felicia Barger, and Psychiatrist is Bari Allen at [facility] She will cont to f/u w/ therapist and psychiatry Assessment & Plan (04/14/2022 9:54 AM EST): doing well Pt follows with psychiatry and has had improvement/non-recurrence of presenting sx since taking lorazepam 0.5mg as needed for panic attacks. She will cont to f/u w/ therapist and psych Deviated nasal septum 05/17/2012 Assessment & Plan (04/14/2022 12:42 PM EST): Pt with previous c/o worsening breathing difficulties when trying to breath to her mouth. evaluated in the past by ENT, pt eventually underwent a septoplasty and turbinate reduction. Pt was last seen 09/01/2021 in the end she decided against another revision surgery and agreed to treatment with steroids for the time being. Today she would like to be seen back, referral places Encounters Date Type Department Care Team Description 04/28/2024 9:00 AM EST Office Visit [facility] [address] [place] [address] Mari Neal, OD Myopia of both eyes (Primary Dx) 03/20/2024 10:30 AM EST Office Visit [facility] [address] [place] [address] Mari Neal, OD RPE mottling of macula (Primary Dx); MGD (meibomian gland dysfunction); Myopia of both eyes 03/20/2024 Travel 03/09/2024 Telephone [facility] [address] [place], [place] [phone] Jim Padilla MD Stable Lab Letter 02/22/2024 11:30 AM EST Office Visit [facility] [address] [place] [address] Jim Padilla MD Moderate persistent asthma without complication (Primary Dx); Preventative health care 02/22/2024 Travel from Last 3 Months Immunizations Name Administration Dates Next Due Influenza injectable quadriv alent preservative free 02/16/2023,12/12/2021,12/03/2020 Influenza, IIV3, injectable 11/08/2009 Influenza, Split (incl. esperanza fied surface antigen) 04/04/2012 Influenza, seasonal, injecta ble, preservative free 12/09/2023 MMR 10/09/2010 Pfizer Covid-19 Vaccine 12+ 02/09/2024 Pneumococcal Conjugate PCV 20 08/24/2023 Pneumococcal Polysaccharide PPSV23 06/21/2014, TD (adult), 2 Lf tetanus tox oid, preservative free, adsorbed 08/24/2023 Tdap 08/09/2009 Family History Medical History Relation Name Comments Diabetes Father Hypertension Father Hypertension Maternal Grandfather Prostate cancer Maternal Grandfather Diabetes Mother Breast cancer Mother's Sister Hypertension Paternal Grandfather Relation Name Status Comments Father Maternal Grandfather Mother Mother's Sister Paternal Grandfather Social History Tobacco Use Types Packs/Day Years Used Date Smoking Tobacco: Some Days Cigarettes 0.3 10 Passive Smoke Exposure: Current Smokeless Tobacco: Never Tobacco Cessation:Ready to Q uit: Not Asked; Counseling Given: Not Answered Alcohol Use Standard Drinks/Week Comments Never 0 [...] Orientation Straight 01/05/2022 10 :19 AM EDT Last Filed Vital Signs Vital Sign Reading Time Taken Comments Blood Pressure 116/65 02/22/2024 11:40 AM EST Pulse 75 02/22/2024 11:40 AM EST Temperature 36.3 ??C (97.3 ??F) 02/22/2024 11:[address] Respiratory Rate 20 02/22/2024 11:40 AM EST Oxygen Saturation 98% 02/22/2024 11:40 AM EST Inhaled Oxygen Concentration - - Weight 63.6 kg (140 lb 3.2 oz) 02/22/2024 11:40 AM EST Height 152.4 cm (5') 02/22/2024 11:40 AM EST Body Mass Index 27.38 02/22/2024 11:40 AM EST Plan of Treatment Upcoming Encounters Date Type Department Care Team (Late st Contact Info) Description 05/19/2024 11:45 AM EDT Office Visit [facility] [address] [place] [address] Rubens Gilbert MD [address] [place] [address] 08/17/2024 10:15 AM EDT Office Visit [facility] [address] [place] [address] Jim Padilla MD [address] [place] [address] Health Maintenance Due Date Last Done Comments Dental X-Ray: Full Mouth 1984 Family Planning (PISQ) 08/09/1999 Hepatitis B Vaccines (1 of 3 - 19+ 3-dose series) 08/09/2003 Dental Oral Exam 10/12/2022 04/13/2022 Dental Prophylaxis 11/30/2022 05/29/2022 Dental X-Ray: Bitewings 02/10/2024 02/08/2023, 04/13 Depression Screening 08/23/2024 08/24/2023, 08/24/19 24 SDOH Screening 08/23/2024 08/24/2023 Pap Smear 11/05/2024 11/05/2021 Alcohol/Substance Use Screening 02/21/2025 02/22/2024 Tobacco Screening 04/06/2025 04/06/2024 Cervical Cancer Screening 11/05/2026 HPV/Cotest 11/05/2026 11/05/2021 Lipid Panel 03/03/2029 03/03/2024 DTaP/Tdap/Td Vaccines (3 - Td or Tdap) 08/23/2033 08/24/2023, 08/09/2009 Zoster Vaccines (1 of 2) 2034 RSV Patients and Patients Aged 60 years or older (1 - 1-dose 75+ series) 08/09/2059 HIV Screening Completed 06/10/2022 Hepatitis C Screening Completed 06/10/2022 Pneumococcal Vaccine: Pediatrics (0 to 5 Years) and At-Risk Patients (6 to 49) Years) Completed 08/24/2023, 06/21/2014, 11/08/2009 Influenza Vaccine Completed 12/09/2023, , 12/12/2021, Additional history exists COVID-19 Vaccine Completed 02/09/2024, 09/2021, 04/17/2021, Additional history exists HIB Vaccines Aged Out No longer eligi ble based on patient's age to complete this topic HPV Vaccines Aged Out No longer eligi ble based on patient's age to complete this topic Hepatitis A Vaccines Aged Out No long er eligible based on patient's age to complete this topic IPV Vaccines Aged Out No longer eligi ble based on patient's age to complete this topic Meningococcal Vaccine Aged Out No pamla toney eligible based on patient's age to complete this topic RSV under 20 months Aged Out No longe r eligible based on patient's age to complete this topic Rotavirus Vaccines Aged Out No longer eligible based on patient's age to complete this topic Procedures Procedure Name Priority Date/Time Associated Diagnosis Comments OCT, RETINA - OU - BOTH EYES Routine 03/20/2024 10:30 AM EST RPE mottling of macula BASIC METABOLIC PANEL Routine 03/03/2024 7:58 AM EST Routine history and physical examination of adult CBC Routine 03/03/2024 7:58 AM EST Routine history and physical examination of adult HEMOGLOBIN A1C Routine 03/03/2024 7:58 AM EST Routine history and physical examination of adult HEPATIC FUNCTION PANEL Routine 03/03/2024 7:58 AM EST Routine history and physical examination of adult VITAMIN D,25-OH,TOTAL,IA Routine 03/03/2024 7:58 AM EST Routine history and physical examination of adult TSH Routine 03/03/2024 7:58 AM EST Routine history and physical examination of adult LIPID PANEL, STANDARD Routine 03/03/2024 7:58 AM EST Routine history and physical examination of adult T4, FREE Routine 03/03/2024 7:58 AM EST Routine history and physical examination of adult BITEWING - SINGLE RADIOGRAPHIC IMAGE Routine 02/08/2023 3:30 PM EST HEPATITIS C AB W/REFL TO HCV RNA, QN, PCR Routine 06/10/2022 9:59 AM EDT Depressive disorder HIV 1/2 ANTIGEN/ANTIBODY, FOURTH GENERATION W/RFL Routine 06/10/2022 9:59 AM EDT Depressive disorder PROPHYLAXIS - ADULT Routine 05/29/2022 1 0:00 AM EDT Dental calculus PERIODIC ORAL EVALUATION - ESTABLISHED PATIENT Routine 04/13/2022 9:30 AM EST THINPREP IMAGING PAP AND HPV MRNA E6/E7, WITH CT/NG, TRICHOMONAS Routine 11/05/2021 11:00 AM EDT from Last 3 Months or Most Recently Relevant to Health Maintenance Results * Vitamin D, 25-Hydroxy, Total, Immunoassay (03/03/2024 7:58 AM EST) Vitamin D 25-OH Total 51.1 >30 ng/mL [facility] Comment:Health Based Referen ce Values*< 20 ng/mL [id number] ng/mL Insufficient> 30 ng/mL Sufficient*Mirian OSORIO. N Engl J Med. 2007;357:266-280Care must be taken in interpreting Vitamin D results fromdifferent laboratories and methodologies. Published datademonstrated that results from patients undergoinghemodialysis may show a negative bias when tested withvarious automated 25-OH vitamin D assays when compared toLC-MS/MS.When testing samples from patients whose predominant form ofVitamin D is Vitamin D2, such as patients receiving VitaminD2 supplementation, results that are subtherapeutic shouldbe confirmed with another method such as LC-MS/MS. Blood Venous blood specimen / Unknown 03/03/2024 7:58 AM EST 03/03/2024 11:35 AM EST us Jackie Kaiser DO LAB BLOOD ORDERABLES Final R esult [facility] [address], [place] [phone] * CBC (03/03/2024 7:58 AM EST) White Blood Count 9.4 4.8 - 10.8 X10*3/uL [facility] Red Blood Count 4.99 4.20 - 5.50 X10*6/uL [facility] Hemoglobin 14.3 12.0 - 16.0 g/dl [facility] Hematocrit 41.6 37.0 - 47.0 % [facility] Mean Corpuscular Volume 83.4 80.0 - 98.0 fL [facility] Mean Corpuscular Hemoglobin 28.7 27.0 - 33.0 pg [facility] Mean Corpuscular HGB Conc 34.4 31.0 - 35.0 g/dl [facility] Red Cell Distribution Width 12.9 11.0 - 16.0 % [facility] Platelet Count 293 160 - 400 X10*3/uL [facility] Mean Platelet Volume 10.8 9.4 - 12.3 fL [facility] NRBC Pct Auto 0.0 0.0 - 0.2 /100WBC [facility] NRBC Abs Auto 0.000 0.0 - 0.012 X10*3/uL [facility] Blood Venous blood specimen / Unknown 03/03/2024 7:58 AM EST 03/03/2024 11:35 AM EST Jackie Job DO LAB BLOOD ORDERABLES Final R esult Performing Organization Address City/[facility] Co de Phone Number [facility] [address] [place] [phone] * TSH (03/03/2024 7:58 AM EST) Thyroid Stimulating Hormone 2.62 0.32 - 4.0 uIU/mL [facility] Comment:Note: A sustained TS H level above 2.5 uIU/mL may warrant further investigation. TSH 3rd Generation ([facility]) Blood Venous blood specimen / Unknown 03/03/2024 7:58 AM EST 03/03/2024 11:35 AM EST Jackie Kaiser DO LAB BLOOD ORDERABLES Final R esult Performing Organization Address [facility] Co de Phone Number [facility] [address] [place] [phone] * T4, Free (03/03/2024 7:58 AM EST) Free T4 (Free Thyroxine) 0.92 0.71 - 1.85 ng/dL [facility] Blood Venous blood specimen / Unknown 03/03/2024 7:58 AM EST 03/03/2024 11:35 AM EST Jackie Job DO LAB BLOOD ORDERABLES Final R esult Performing Organization Address City/[facility]/ZIP Co de Phone Number [facility] [address] [place] [phone] * Hemoglobin A1c (03/03/2024 7:58 AM EST) Hemoglobin A1c 4.7 <6.0 % [facility] Comment:Hemoglobin A1C Refer ence Range Adults: 4.8 - 6.0 % Non diabetic: < 6.0 % Goal: < 7.0 %Additional Action Suggested: > 8.0 %Note: Hemoglobin A1c results are invalid for patients with abnormal amounts of HbF. Blood transfusions may impact the HbA1c concentration in the patient sample. Estimated Average Glucose 88 mg/dL [facility] Comment:eAG = Estimated ave rage glucose which is %A1C expressed asaverage glucose, using the formula of the C9H-[id number] Glucose study (ADAG), Diabetes Care, Vol.31,#8,2007 Blood Venous blood specimen / Unknown 03/03/2024 7:58 AM EST 03/03/2024 11:35 AM EST Jackie Job LAB BLOOD ORDERABLES Final R esult Performing Organization Address [facility] Co de Phone Number [facility] [address] [place] [phone] * Hepatic Function Panel (03/03/2024 7:58 AM EST) Bilirubin, Total 0.5 0.0 - 1.0 mg/dL [facility] Bilirubin, Direct 0.2 0.0 - 0.5 mg/dL [facility] Aspartate Amino Transferase 25 5 - 31 U/L [facility] Alanine Aminotransferase 15 0 - 31 U/L [facility] Total Protein 7.3 6.5 - 8.0 g/dL [facility] Albumin Level 4.3 3.5 - 5.0 g/dL [facility] Alkaline Phosphatase 82 39 - 117 U/L [facility] Blood Venous blood specimen / Unknown 03/03/2024 7:58 AM EST 03/03/2024 11:35 AM EST [facility] LAB BLOOD ORDERABLES Final R esult Performing Organization Address [facility] Phone Number [facility] [address] [place] [phone] * (ABNORMAL) Lipid Panel, Standard (03/03/2024 7:58 AM EST) Triglycerides 137 <150 mg/dL [facility] Comment:Desirable Triglyceri de: less than 150 mg/dLBorderline High Triglyceride 150-199 mg/dLHigh Triglyceride: 200-499 mg/dLVery High Triglyceride: greater than or equal to 5OO mg/dL Cholesterol 212(H) <200 mg/dL [facility] Comment:Desirable Cholestero l: less than 200 mg/dLBorderline High Cholesterol: 200-239 mg/dLHigh Cholesterol: greater than 239 mg/dL LDL Cholesterol Calculated 125(H) <100 mg/dL [facility] Comment:Desirable LDL: less than 100 mg/dLNear Optimal/Above Optimal LDL: 110- 129 mg/dLBorderline High LDL: 130-159 mg/dLHigh LDL: 160-189 mg/dLVery High LDL: greater than or equal to 190 mg/dL HDL Cholesterol 60 >40 mg/dL [facility] Comment:Desirable HDL: great er than 40 mg/dL Note: This HDL assay may give artificially low results in patients with liver disease. Blood Venous blood specimen / Unknown 03/03/2024 7:58 AM EST 03/03/2024 11:35 AM EST us Jackie Kaiser DO LAB BLOOD ORDERABLES Final R esult [facility] [address] [place] [phone] * (ABNORMAL) Basic Metabolic Panel (03/03/2024 7:58 AM EST) Sodium 135 135 - 145 mmol/L [facility] Potassium 3.6 3.3 - 5.1 mmol/L [facility] Chloride 106 96 - 108 mmol/L [facility] Carbon Dioxide 22 22 - 29 mmol/L [facility] Anion Gap 11(L) 12 - 20 [facility] Urea Nitrogen (BUN) 12 9 - 16 mg/dL [facility] Creatinine, Serum 0.72 0.5 - 1.4 mg/dL [facility] Estimated Glomerular Filt Rate >60 [facility] Comment:Chronic Kidney Disea se: Estimated GFR < 60 mL/min/1.37n0Wwdjbv Kidney Disease: Estimated GFR < 15 mL/min/1.73m2 Glucose 77 60 - 115 mg/dL [facility] Calcium 9.2 8.4 - 10.2 mg/dL [facility] Blood Venous blood specimen / Unknown 03/03/2024 7:58 AM EST 03/03/2024 11:35 AM EST us Jackie Kaiser DO LAB BLOOD ORDERABLES Final R esult [facility] [address] [place] [phone] * Hepatitis C Antibody with Reflex to HCV, RNA, Quantitative, Real-Time PCR (06/10/2022 9:59 AM EDT) Hepatitis C Antibody NON-REACT ANTONI NON-REACT ANTONI [facility] [place] [facility]/20 Index 0.06 <1.00 [facility] [place] [facility] Comment: HCV antibody was non-reactive. There is no laboratory evidence of HCV infection. In most cases, no further action is required. However, if recent HCV exposure is suspected, a test for HCV RNA (test code 79672) is suggested. For additional information please refer to http://education.ExoYou/faq/VBM29c6 (This link is being provided for informational/ educational purposes only.) Blood Venous blood specimen / Unknown 06/10/2022 9:59 AM EDT 06/10/2022 10:00 AM EDT Narrative [facility] - 06/10/2022 8:37 PM EDT FASTING:YES FASTING: YES Jim Barker MD LAB BLOOD ORDERABLES Final Result [facility] [address], [address] [place] [address] [facility] [address] [place] [phone] * HIV-1/2 Antigen and Antibodies, Fourth Generation, with Reflexes (06/10/2022 9:59 AM EDT) HIV Antigen/Antibody, 4th Generation NON-REAC TIVE NON-REAC TIVE [facility] Comment: HIV-1 antigen and HIV-1/HIV-2 antibodies were not detected. There is no laboratory evidence of HIV infection. PLEASE NOTE: This information has been disclosed to you from records whose confidentiality may be protected by state law. ??If your state requires such protection, then the state law prohibits you from making any further disclosure of the information without the specific written consent of the person to whom it pertains, or as otherwise permitted by law. A general authorization for the release of medical or other information is NOT sufficient for this purpose. ?? For additional information please refer to http://education.ExoYou/faq/VIP849 (This link is being provided for informational/ educational purposes only.) The performance of this assay has not been clinically validated in patients less than 2 years old. Blood Venous blood specimen / Unknown 06/10/2022 9:59 AM EDT 06/10/2022 10:00 AM EDT [facility] - 06/10/2022 8:37 PM EDT FASTING:YES FASTING: YES Jim Barker MD LAB BLOOD ORDERABLES Final Result [facility] [address], [address] [place] [phone] [facility] [address] [place] [phone] * THINPREP TIS PAP AND HPV mRNA E6/E7, CT/NG, TRICH (11/05/2021 11:00 AM EDT) Chlamydia trachomatis RNA, TMA, Urogenital NOT DETECTED NOT DETECTED [facility] Clinical Information: None given [facility] COMMENT SEE COMMENT [facility] Comment: The analytical performance characteristics of this assay, when used to test SurePath(TM) specimens have been determined by [facility]. The modifications have not been cleared or approved by the FDA. This assay has been validated pursuant to the CLIA regulations and is used for clinical purposes. ?? For additional information, please refer to https://[place].ExoYou/faq/AWU349 (This link is being provided for information/ educational purposes only.) ?? COMMENT SEE COMMENT [facility] Comment: EXPLANATORY NOTE: ? The Pap is a screening test for cervical cancer. It is ?? not a diagnostic test and is subject to false negative ?? and false positive results. It is most reliable when a ?? satisfactory sample, regularly obtained, is submitted ?? with relevant clinical findings and history, and when ?? the Pap result is evaluated along with historic and ?? current clinical information. ?? COMMENT: This Pap test has been evaluated with computer assisted technology. [facility] Logger All Round: SEE COMMENT [facility] Comment: GSG, CT(ASCP) CT screening location: [address] ??[id number] HPV nRNA E6/E7 Not Detected Not Detected [facility] Comment: Methodology: Hog Pusher-Mediated Amplification This assay detects E6/E7 viral messenger RNA (mRNA) from 14 high-risk HPV types (16,18,31,33,35,39,45,51,52,56,58,59,66,68). ? Cervical sources are required for HPV testing. If a vaginal source from a patient who has had a total hysterectomy with removal of cervix was ?? submitted, please contact the testing laboratory for alternative testing options. ?? For additional information, please refer to http://[place].ExoYou/faq/NRL562y8 (This link if provided for information/ educational purposes only.) Interpretation/Re sult: Negative for intraepithelial lesion or malignancy. [facility] LMP: 10/27/2021 [facility] Neisseria gonorrhoeae RNA, TMA, Urogenital NOT DETECTED NOT DETECTED [facility] Prev. BX: NONE GIVEN [facility] Prev. PAP: NIL PAP 06/2018 [facility] SOURCE: None given [facility] Statement Of Adequacy: SEE COMMENT [facility] Comment: Satisfactory for evaluation. Endocervical/transformation zone component present. Trichomonas vaginalis, QL, TMA, PAP Vial NOT DETECTED NOT DETECTED [facility] Comment: The analytical performance characteristics of this assay have been determined by [facility]. The modifications have not been cleared or approved by the FDA. This assay has been validated pursuant to the CLIA regulations and is used for clinical purposes. ?? For additional information, please refer to http://education.ExoYou/ faq/Trichomonastma (This link is being provided for information/ educational purposes only.) ?? 11/05/2021 11:0 0 AM EDT us Stefania Reno CNM LAB PATHOLOGY ORDERABLES Final Result [facility] [address] from Last 3 Months or Most Recently Relevant to Health Maintenance [facility] Care Teams Stitching Machine Operator Relationship Specialty Start Date End Date Jim Padilla MD [address] [place] [id number] PCP - General Internal Medicine 07/18/14
== END 2024-05-17 10:02 | disposition home or self-care (01) ==
LOC: HO.HPS 09:30
PROVIDERS: PCP Internal Medicine; Visit Provider Internal Medicine Pulmonary Disease
DX: J45.50 Severe persistent asthma, uncomplicated (principal); Z91.09 Other allergy status, other than to drugs and biological substances
CPT/HCPCS: 99214

== ENCOUNTER → 2024-05-17 09:29 | Outpatient (BNVA) | payer MEDICAID, SELFPAY | PROVIDERS: PCP Internal Medicine; Visit Provider Internal Medicine Pulmonary Disease | DX: J45.50 Severe persistent asthma, uncomplicated (principal); Z91.09 Other allergy status, other than to drugs and biological substances | CPT/HCPCS: 99212 ==

== ENCOUNTER 2024-05-19 11:13 | Emergency (ER) | payer MEDICAID, SELFPAY ==
--- NOTE | ~2024-05-19 | CT_ITS ---
CLINICAL HISTORY: headache x 3d, no hx of same CT head without contrast. COMPARISON: None FINDINGS: The visualized paranasal sinuses are clear. The mastoid air cells are clear. No calvarial fracture. No evidence for mass or mass effect. No intracranial hemorrhage or abnormal extra-axial fluid collection. No evidence of hydrocephalus. The basilar cisterns are patent. Posterior fossa appears unremarkable. IMPRESSION: 1. No acute intracranial findings. This document has been electronically signed by: Tuan Jordan MD on 05/19/2024 17:19:14
[2024-05-19 11:31] VITALS: BP 128/49; PULSE 75; RESP 16; TEMP 36.7; O2SAT 99; BMI 27.2
--- NOTE | 2024-05-19 11:31 | ED.GENADULT ---
HPI - General Adult General Chief complaint: Headache Stated complaint: Headache Time Seen by Provider: 05/19/24 13:15 Source: patient Mode of arrival: ambulatory Limitations: no limitations History of Present Illness ED Provider: Steve Chambers [facility] narrative: 38 yold female with pmh of asthma and environmetal allergies presents to the ED for right sided headache with photosensitivity for the past 3 days. Patient denenies any neck stiffness, fever, chills, headache, nausea, vomitting, recent head trauma, rash, loss of vision, blurry vision, or change in vision. Related Data Previous Rx's ?Medication ?Instructions ?Recorded dupilumab 300 mg/2 mL subcutaneous 300 mg (2 mL) subcut Q2W #4 mL 06/30/23 pen injector (Dupixent) fluticasone 500 mcg-salmeterol 50 1 inh inhalation BID #60 ea 05/16/24 mcg/dose blistr powdr for inhalation (Advair Diskus) ipratropium bromide 42 mcg (0.06 2 spray intranasal TID-QID PRN 05/17/24 %) nasal spray allergy symptoms #15 mL fraretjcei-zyynahtjrhghr-fguasraz 1 cap PO Q6H PRN pain #12 caps 05/19/24 50 mg-300 mg-40 mg capsule (Fioricet) ketorolac 10 mg tablet 10 mg PO Q6H PRN pain #20 tabs 05/19/24 Allergies Allergy/AdvReac Type Severity Reaction Status Date / Time peanut Allergy Intermediate Sneezing Verified 05/19/24 11:32 Review of Systems Review of Systems: RIght voodoo headache and photosentivity Yes all other systems are reviewed and are negative [facility] Past Medical History Medical History (Updated 05/20/24 @ 00:01 by George Sena) Patient denies medical problems Social History Social History (Updated 05/17/24 @ 09:52 by GARTH Stephens) Alcohol intake: never Patient Tobacco Use Status: Current someday Tobacco user Tobacco use type: Cigarette Cigarettes Per Day: 2 Smoked in Last 30 Days: No Use of substances other than those prescribed or required for medical reasons: No Advance Directives: No Advance Directives Information Provided: Yes Do you have a plan to hurt others: No Plan Physical Exam ED Vital Signs: Vital Signs - 24 hr 05/19/24 11:31 05/19/24 16:09 Temperature 98.1 F 97.5 F Pulse Rate 75 70 Respiratory Rate 16 18 Blood Pressure 128/49 L 114/64 Pulse Oximetry 99 98 Oxygen Delivery Method Room Air Room Air BMI result Body Mass Index 27.2 Const General: cooperative, healthy appearing, comfortable, no acute distress, well developed, alert and awake Orientation/consciousness: patient oriented x3 HENMT Head: Yes normal to inspection, Yes No palpable skull fracture present, Yes normocephalic, Yes atraumatic, No abrasion, No Acrocyanosis present, No Martinez's sign, No cranial bruits, No hematoma, No laceration, No occipital foramen tenderness, No palpable skull fracture, No raccoon eyes, No scalp lesion, No scalp tenderness, No Temporal artery tenderness present and No periorbital ecchymosis Ears: hearing grossly normal bilaterally, external ears normal, TM's normal bilaterally, TM normal on the right, TM normal on the left, EAC's normal, mastoids normal and no periauricular adenopathy Throat: Yes posterior oropharynx normal, Yes tonsils normal and Yes uvula midline Eyes Other: Bilateral both eyes negative for erythema, mass on the eyelids, eyelid swelling, discharge, hyphema, or any added crusting. Tonometry Pressure in both eyes are 16. Exam negative for signs of corneal abrasion, corneal ulcer, foreign body, glaucoma, orbital cellulitis, or globe rupture. Visual acuity in both eyes are 20/20 General: appearance normal, both eyes and all related structures Visual Murillo: normal visual murillo by confrontation Alignment and Position: alignment normal Periorbital: periorbital findings normal Eyelids: Yes eyelids normal Conjunctivae: conjunctivae normal Sclerae: sclerae normal Corneas: corneas normal Pupils: Equal, round and reactive pupils present EOM: EOMs intact bilaterally Direct Ophthalmoscopy: normal light reflex Neck Neck: Yes normal visual inspection, Yes full ROM, Yes no lymphadenopathy, Yes no meningeal signs, Yes trachea midline, Yes supple, No anterior neck swelling and No tender Chest Chest palpation & inspection: normal inspection of the chest and normal palpation of entire chest wall Resp Effort & Inspection: normal respiratory effort and able to speak in complete sentences Auscultation: clear to auscultation bilaterally Cardio Jugular venous distension: no JVD Heart sounds: S1 normal heart sound present and S2 normal heart sound present GI Inspection: Yes normal to inspection Palpation (GI): Soft to palpation, not firm, nontender, no guarding and not rigid General: Yes no CVA tenderness Back/Spine/Pelvis Back: no CVA tenderness and No back tenderness Skin General skin exam: no rashes or lesions noted, elasticity normal and turgor normal Neuro General: patient oriented x3, gait normal, tone normal, moves all extremities, Normal light touch and pain sensation, no meningeal signs, no focal motor deficits, CN's II-XI intact bilaterally and normal sensation to monofilament Cranial nerves: Yes Equal, round and reactive pupils present Extrem General: Yes normal to inspection, Yes full ROM and Yes capillary refill normal Psych Appearance: grossly normal, well kempt and not disheveled Course Course Course Narrative: This is a rapid medical exam performed by rEma Dow NP: Additional HPI, ROS, PE not included below will be deferred to primary provider. Patient is a 38-year-old Ugandan speaking female presenting from urgent care with complaint of right sided headache x 3 days. Denies hx of same. Plan: viral panel, basic labs, CT head Medications Administered Discontinued Medications Generic Name Dose Route Start Last Admin Trade Name Freq PRN Reason Stop Dose Admin Acetaminophen/Butalbital/Caffeine 2 tab 05/19/24 14:27 05/19/24 14:58 Butalb/Acetamin/Caff 50/325/40 Tablet PO 05/19/24 14:28 2 tab ONCE ONE Administration Dexamethasone Sodium Phosphate 8 mg 05/19/24 14:27 05/19/24 15:18 Dexamethasone Sod Phosphate 4 Mg/Ml Vial IVPUSH 05/19/24 14:28 8 mg ONCE ONE Administration Diphenhydramine HCl 50 mg 05/19/24 14:27 05/19/24 15:02 Diphenhydramine Hcl 50 Mg/Ml Vial IVPUSH 05/19/24 14:28 50 mg ONCE ONE Administration Magnesium Sulfate 2 gm in 50 mls @ 25 mls/hr 05/19/24 14:27 05/19/24 16:28 Magnesium Sulfate/H2o IV 05/19/24 16:26 Infused ONCE ONE Infusion Sodium Chloride 1,000 mls @ 999 mls/hr 05/19/24 14:29 05/19/24 16:28 Ns IV 05/19/24 15:29 Infused .Q1H1M STA Infusion Ketorolac Tromethamine 30 mg 05/19/24 17:41 05/19/24 17:46 Ketorolac Tromethamine 30 Mg/Ml Vial IVPUSH 05/19/24 17:42 30 mg ONCE ONE Administration Metoclopramide HCl 10 mg 05/19/24 14:49 05/19/24 14:59 Metoclopramide Hcl 10 Mg/2 Ml Vial IVPUSH 05/19/24 14:50 10 mg ONCE STA Administration Medical Decision Making Medical Decision Making [facility] Narrative: 38-year-old female presents to ED for right temporal/side headache for 3 days with some photophobia. Labs normal. ESR negative. CRP not significantly elevated. Migraine cocktail ordered. We will hold off Toradol until CT scan results come back of the head. 5:40pm: Head CT scan normal. Toradol ordered. Not suspecting temporal arteritis, stroke, glaucoma, subarachnoid hemorrhage, meningitis, encephalitis, or any life-threatening etiology. Patient explained worrisome signs and informed to return to the ED immediately. diagnosis ocular migraine Differential Diagnosis Differential Diagnoses: The differential diagnosis associated with the presentation includes (Migraine, headache) Admission/Observation Consideration of admission/observation: Escalation of care including admission/observation considered Lab Data [facility] Lab Attestation statement: I reviewed the patient's lab results. 05/19/24 11:40 05/19/24 11:40 Labs: Lab Results 05/19/24 Range/Units 11:40 WBC 10.4 (4.8-10.8) X10*3/uL RBC 4.86 (4.20-5.50) X10*6/uL Hgb 14.1 (12.0-16.0) g/dl Hct 40.3 (37.0-47.0) % MCV 82.9 (80.0-98.0) fL MCH 29.0 (27.0-33.0) pg MCHC 35.0 (31.0-35.0) g/dl RDW 12.5 (11.0-16.0) % Plt Count 255 (160-400) X10*3/uL MPV 10.3 (9.4-12.3) fL Immature Gran % (Auto) 0.3 (0.0-0.4) % Neut % (Auto) 71.0 (45-73) % Lymph % (Auto) 20.2 (20-40) % Gilliam % (Auto) 4.9 (2-11) % Eos % (Auto) 3.1 (0-4) % Baso % (Auto) 0.5 (0-2) % Lymph # (Auto) 2.1 (1.2-4.9) X10*3/uL Gilliam # (Auto) 0.5 (0.1-1.2) X10*3/uL Eos # (Auto) 0.3 (0.0-0.4) X10*3/uL Baso # (Auto) 0.1 (0.0-0.2) X10*3/uL Abs Immat Gran (auto) 0.03 (0.00-0.03) X10*3/uL Absolute Neuts (auto) 7.4 (2.0-8.3) x10*3/uL Absolute Nucleated RBC 0.000 (0.0-0.012) X10*3/uL Nucleated RBC % (auto) 0.0 (0.0-0.2) /100WBC ESR 14 (0-20) MM/HR Sodium 137 (135-145) mmol/L Potassium 3.8 (3.3-5.1) mmol/L Chloride 106 (96-108) mmol/L Carbon Dioxide 24 (22-29) mmol/L Anion Gap 11 L (12-20) BUN 10 (9-16) mg/dL Creatinine 0.75 (0.5-1.4) mg/dL Estim Creat Clear Calc 83.6 Estimated GFR > 60 Random Glucose 141 H (60-115) mg/dL Calcium 9.4 (8.4-10.2) mg/dL Magnesium 1.7 (1.6-2.6) mg/dL Total Bilirubin 0.3 (0.0-1.0) mg/dL AST 23 (5-31) U/L ALT 13 (0-31) U/L Alkaline Phosphatase 105 (39-117) U/L C-Reactive Protein 0.86 H (< or = 0.50) mg/dL Total Protein 7.7 (6.5-8.0) g/dL Albumin 4.2 (3.5-5.0) g/dL Beta HCG, Quant < 2 mIU/mL Influenza Type A (PCR) NEGATIVE (Negative) Influenza Type B (PCR) NEGATIVE (Negative) RSV RNA Qual (PCR) NEGATIVE (Negative) SARS-CoV-2 RNA (RT-PCR) NEGATIVE (Negative) Independent Interpretation I performed an independent interpretation of an: CT Scan Radiology Impression Discussion of test interpretation with radiology: I have reviewed the radiologist's reading. Independent Historian Clinical information obtained from an independent historian. History obtained from or confirmed by: Other (Patient) Prescription Management I considered prescription management with: Pain Medication Discharge Plan Discharge Clinical Impression: Migraine, Headache Patient Disposition: Home, Self-Care Instructions: Migraine Headache (ED), General Headache (ED) Additional Instructions: Recommend follow-up with primary care provider and neurology for evaluation and management of the headache. Return to the ED immediately for any worsening headache, neck stiffness, nausea, vomiting, rash, laparotomy in the eyes, slurred speech, facial droop, paralysis of extremities, or any other concerning symptoms. CT head without contrast. COMPARISON: None FINDINGS: The visualized paranasal sinuses are clear. The mastoid air cells are clear. No calvarial fracture. No evidence for mass or mass effect. No intracranial hemorrhage or abnormal extra-axial fluid collection. No evidence of hydrocephalus. The basilar cisterns are patent. Posterior fossa appears unremarkable. IMPRESSION: 1. No acute intracranial findings. This document has been electronically signed by: Tuan Jordan MD on 05/19/2024 17:19:14 Prescriptions: New ketorolac 10 mg tablet 10 mg PO Q6H PRN (Reason: pain) Qty: 20 0RF Rx Instructions: Patient received 30 mg IM in the ED lorwgvgqhr-etnpezavijiwt-ejnu [Fioricet] 50-300-40 mg capsule 1 cap PO Q6H PRN (Reason: pain) Qty: 12 0RF No Action Dupixent Pen 300 mg/2 mL pen injector 300 mg subcut Q2W Qty: 4 11RF fluticasone propion-salmeterol [Advair Diskus] 500-50 mcg/dose blister with device 1 inh inhalation BID Qty: 60 0RF ipratropium bromide 42 mcg (0.06 %) spray,non-aerosol 2 spray intranasal TID-QID PRN (Reason: allergy symptoms) Qty: 15 6RF Rx Instructions: administer into each nostril Referrals: Jim Gordon MD [Primary Care Provider] - (Migraine headache) Diogenes Garay MD [Physician] - (Migraine headache) Stand Alone Forms: Work/School Release Interventions: ED Discharge Assessment Last Done: 05/19/24 18:09 Discharge Date/Time: 05/19/24 18:10 Print Language: Ugandan
[2024-05-19 11:43] LABS: MANUAL DIFF FLAG NO
[2024-05-19 11:46] LABS: Basophils Absolute Auto 0.1 X10*3/uL (0.0-0.2); Basophils Percent Auto 0.5 % (0-2); Eosinophils Absolute Auto 0.3 X10*3/uL (0.0-0.4); Eosinophils Percent Auto 3.1 % (0-4); Hematocrit 40.3 % (37.0-47.0); Hemoglobin 14.1 g/dl (12.0-16.0); Imm Gran Abs Auto 0.03 X10*3/uL (0.00-0.03); Imm Gran Pct Auto 0.3 % (0.0-0.4); Lymphocytes Absolute Auto 2.1 X10*3/uL (1.2-4.9); Lymphocytes Percent Auto 20.2 % (20-40); Mean Corpuscular Volume 82.9 fL (80.0-98.0); Mean Platelet Volume 10.3 fL (9.4-12.3); Monocytes Absolute Auto 0.5 X10*3/uL (0.1-1.2); Monocytes Percent Auto 4.9 % (2-11); Neutrophils Absolute Auto 7.4 x10*3/uL (2.0-8.3); Platelet Count 255 X10*3/uL (160-400); Red Blood Count 4.86 X10*6/uL (4.20-5.50); Red Cell Distribution Width 12.5 % (11.0-16.0); White Blood Count 10.4 X10*3/uL (4.8-10.8)
[2024-05-19 12:13] LABS: Alanine Aminotransferase 13 U/L (0-31); Albumin Level 4.2 g/dL (3.5-5.0); Alkaline Phosphatase 105 U/L (39-117); Anion Gap 11 (12-20); Aspartate Amino Transferase 23 U/L (5-31); Bilirubin Total 0.3 mg/dL (0.0-1.0); Blood Urea Nitrogen 10 mg/dL (9-16); Calcium 9.4 mg/dL (8.4-10.2); Carbon Dioxide 24 mmol/L (22-29); Chloride 106 mmol/L (96-108); Creatinine Clr Calc Pharmacy 83.6; Estimated Glomerular Filt Rate > 60; Glucose Random 141 mg/dL (60-115); HCG Quantitative < 2 mIU/mL; Potassium 3.8 mmol/L (3.3-5.1); Sodium 137 mmol/L (135-145); Total Protein 7.7 g/dL (6.5-8.0)
[2024-05-19 12:23] LABS: Influenza A PCR NEGATIVE (Negative); Influenza B PCR NEGATIVE (Negative); Resp Syncy Virus RNA Qual PCR NEGATIVE (Negative); SARS COV2 PCR INHOUSE NEGATIVE (Negative)
[2024-05-19 14:40] LABS: C Reactive Protein 0.86 mg/dL (< or = 0.50)
[2024-05-19] MEDS: 0.9 % Sodium Chloride 1,000 ML 999 ML IV (14:45)
--- OUTSIDE RECORDS SUMMARY | 2024-05-19 14:46 | XMS_ITS | Encounter Summary ---
Author Organization [employer] Address [address] [place] [address] Care Team Providers Care Ict Programmer Name Role Phone Jim Padilla MD Primary Care Provide r Encounter Details Date Type Department Care Team (Latest Contact Info) Description 05/19/2024 9:40 AM EDT Office Visit [facility] [address] [place] [id number] Acute nonintractable headache, unspecified headache type (Primary Dx); Right ear impacted cerumen Social History Tobacco Use Types Packs/Day Years [...] AM EDT documented as of this encounter Last Filed Vital Signs Vital Sign Reading Time Taken Comments Blood Pressure 114/69 05/19/2024 9:47 AM EDT Pulse 71 05/19/2024 9:47 AM EDT Temperature 36.2 ??C (97.2 ??F) 05/19/2024 9:47 AM ED T Respiratory Rate 17 05/19/2024 9:47 AM EDT Oxygen Saturation 98% 05/19/2024 9:47 AM EDT Inhaled Oxygen Concentration - - Weight 63.7 kg (140 lb 6.4 oz) 05/19/2024 9:47 A M EDT Height - - Body Mass Index 27.42 02/22/2024 11:40 AM EST documented in this encounter Plan of Treatment Upcoming Encounters Date Type Department Care Team (Late st Contact Info) Description 08/17/2024 10:15 AM EDT Office Visit [facility] [address] [place] [address] Jim Padilla MD [address] [place] [address] documented as of this encounter Visit Diagnoses Diagnosis Acute nonintractable headache, unspecified headache type- Primary Right ear impacted cerumen Impacted cerumen documented in this encounter Additional Health Concerns Assessment Noted Time PHQ-9 Depression Total Score: 5 08/24/19 24 11:42 AM EDT documented as of this encounter Care Teams Ict Programmer Relationship Specialty Start Date End Date Jim Padilla MD [address] [place] [id number] PCP - General Internal Medicine 07/18/14 documented as of this encounter
--- OUTSIDE RECORDS SUMMARY | 2024-05-19 14:46 | XMS_ITS | Encounter Summary ---
Author Organization [employer] Address [address] [place] [address] [address] [address] Care Team Providers Care Manufacturing Systems Engineer Name Role Phone Jim Padilla MD Primary Care Provide r Reason for Visit * Reason Onset Date Comments Telephone Call -Insurance. 05/18/2024 Encounter Details Date Type Department Care Team ([facility] st Contact Info) Description 05/18/2024 Telephone [facility] [address] [place] [address] Jim Paidlla MD [address] [place] [address] Telephone Call -Insurance. Social History Tobacco Use Types Packs/Day Years [...] got money to buy more: Sometimes True 06/18/ 2024 Within the past 12 months,th e food [...] encounter Miscellaneous Notes * Telephone Encounter - Aicha Humphrey - 05/18/2024 11:11 AM EDT Outgoing call to patient. Pharmacist Hospital informed the patient that her health Insurance [employer] has her with two incorrect patient identifiers. [facility] has her with a of 1985 in addition [facility] has her with a last name Stan. Our records indicate her last name is Flavio and her is 83. Patient states she will come in to Insurance Enrollment hopefully today to resolve issue demographics issue. documented in this encounter Plan of Treatment Upcoming Encounters Date Type Department Care Team (Late st Contact Info) Description 08/17/2024 10:15 AM EDT Office Visit [facility] [address] [place] [address] Jim Padilla MD [address] [place] [address] documented as of this encounter Visit Diagnoses Not on filedocumented in this encounter Additional Health Concerns Assessment Noted Time PHQ-9 Depression Total Score: 5 08/24/19 24 11:42 AM EDT documented as of this encounter Care Teams Manufacturing Systems Engineer Relationship Specialty Start Date End Date Jim Padilla MD [address] [place] [address] PCP - General Internal Medicine 07/18/14 documented as of this encounter
--- OUTSIDE RECORDS SUMMARY | 2024-05-19 14:46 | XMS_ITS | Clinical Summary ---
Author Organization [employer] Address [address] [place] [address] [address] [place] [address] Care Team Providers Care Bench Hand Name Role Phone Jim Padilla MD Primary [...] for wheezing. 18 g 3 4 Active nicotine (Nicoderm CQ) 14 MG/24HR patch Place 1 patch on the skin 1 (one) time each day at the same time. 42 patch 5 025 Active nicotine (Nicoderm CQ) 7 MG/24HR patch Place 1 patch on the skin 1 (one) time each day at the same time. 14 patch 5 025 Active nicotine polacrilex (Commit) 2 MG lozenge Dissolve 1 lozenge (2 mg) in the mouth if needed for smoking cessation. 100 lozenge 5 025 Active carbamide peroxide (Debrox) 6.5 % otic solution Administer 5 drops into the right ear 2 times daily for 4 days. 15 mL 5 025 Active Active Problems Problem Noted Date Diagnosed [...] Asthma diagnosed as a child in [place]. Pt reports symptoms at least once a month. Currently on a regimen of: Advair Diskus 500/50 1 puff BID Dupixent and Pro-air MDi 1 to 2 puffs QID prn. Pt no longer following with an cad application support specialist Pt is also under the care of Pulmonology last note on record from Dr Howard 01/25/2024 Assessment & Plan (08/24/2023 11:43 AM EDT): Patient here for a follow up Reports no recent exacerbations She has severe allergic Asthma diagnosed as a child in [place]. Pt reports symptoms at least once a month. Currently on a regimen of: Advair Diskus 500/50 1 puff BID Dupixent and Pro-air MDi 1 to 2 puffs QID prn. Pt no longer following with an cad application support specialist Pt is also under the care of Pulmonology last note on record from Dr Howard 07/2023 Assessment & Plan (02/16/2023 2:16 PM EST): Patient here for a follow up Reports no recent exacerbations She has severe allergic Asthma diagnosed as a child in [place]. Pt reports symptoms at least once a month. Currently on a regimen of: Advair Diskus 500/50 1 puff BID Dupixent and Pro-air MDi 1 to 2 puffs QID prn. Pt no longer following with an cad application support specialist Pt is also under the care of Pulmonology last note on record from 12/09/2022 Assessment & Plan (07/30/2022 11:22 AM EDT): Patient here for a follow up Reports no recent exacerbations She has severe allergic Asthma diagnosed as a child in [place]. Pt reports symptoms at least once a month. Currently on a regimen of: Advair Diskus 500/50 1 puff BID Dupixent and Pro-air MDi 1 to 2 puffs QID prn. Pt is following with an cad application support specialist is undergoing immunotherapy Pt is also under the care of Pulmonology last note on record from 09/17/2021 Assessment & Plan (04/14/2022 9:53 AM EST): Patient here for a follow up Reports no recent exacerbations She has severe allergic Asthma diagnosed as a child in her [place]. Pt reports symptoms at least once a month. Currently on a regimen of: Advair Diskus 500/50 1 puff BID Dupixent and Pro-air MDi 1 to 2 puffs QID prn. Pt is following with an cad application support specialist is undergoing immunotherapy Pt is also [...] Barger, and Psychiatrist is Bari Allen at [facility] She will cont to f/u w/ therapist and psychiatry Assessment & Plan (02/16/2023 2:14 PM EST): doing well Pt follows with psychiatry and has had improvement/non-recurrence of presenting sx since taking Trazodone 50 Concerta 27 mg Duloxetine 30 mg lorazepam 0.5mg as needed for panic attacks. Her therapist is Felicia Barger, and Psychiatrist is Bari Allen at [facility] She will cont to f/u w/ therapist [...] Encounters Date Type Department Care Team Description 05/19/2024 9:40 AM EDT Office Visit [facility] [address] [place], [place] [phone] Acute nonintractable headache, unspecified headache type (Primary Dx); Right ear impacted cerumen 05/19/2024 Population Health Risk Score [facility] () Department [address] [place] [address] [phone] Provider, Population Health Generic 05/19/2024 Travel 05/18/2024 Telephone [facility] [address] [place], [place] [phone] Jim Padilla MD Telephone Call -Insurance. 04/28/2024 9:00 AM EST Office Visit [facility] [address] [place], [place] [phone] Mari Neal, OD Myopia of both eyes (Primary Dx) 03/20/2024 10:30 AM EST Office Visit [facility] [address] [place], [place] [phone] Ricky Nealn, OD RPE mottling of macula (Primary Dx); MGD (meibomian gland dysfunction); Myopia of both eyes 03/20/2024 Travel 03/09/2024 Telephone [facility] [address] [place], [place] [phone] Jim Padilla MD Stable Lab Letter 02/22/2024 11:30 AM EST Office Visit [facility] [address] [place] [address] Jim Padilla MD Moderate persistent asthma without [...] oz) 05/19/2024 9:47 A M EDT Height 152.4 cm (5') 02/22/2024 11:40 AM EST Body Mass Index 27.42 02/22/2024 11:40 AM EST Plan of Treatment Upcoming Encounters Date Type Department Care Team (Late st Contact Info) Description 08/17/2024 10:15 AM EDT Office Visit [facility] [address] [place] [phone] Jim Padilla MD [address] [place] [address] Health Maintenance Due Date Last Done Comments Dental X-Ray: Full Mouth 1984 Family Planning (PISQ) 08/09/1999 Hepatitis B Vaccines (1 of 3 - 19+ 3-dose series) 08/09/2003 Dental Oral Exam 10/12/2022 04/13/2022 Dental Prophylaxis 11/30/2022 05/29/2022 Dental X-Ray: Bitewings 02/10/2024 02/08/2023, 04/13 Depression Screening 08/23/2024 08/24/2023, 08/24/19 SDOH Screening 08/23/2024 08/24/2023 Pap Smear 11/05/2024 11/05/2021 Alcohol/Substance Use Screening 02/21/2025 02/22/2024 Tobacco Screening 05/19/2025 05/19/2024 Cervical Cancer Screening 11/05/2026 HPV/Cotest 11/05/2026 11/05/2021 [...] this topic Meningococcal Vaccine Aged Out No palma toney eligible based on patient's age to complete this topic RSV under 20 months Aged Out No longe r eligible based on patient's age to complete this topic Rotavirus Vaccines Aged Out No longer eligible based on patient's age to complete this topic Procedures Procedure Name Priority Date/Time Associated Diagnosis Comments C-REACTIVE PROTEIN Routine 05/19/2024 11 :40 AM EDT Candidiasis HCG, TOTAL, QN Routine 05/19/2024 11:40 AM EDT Candidiasis COMPREHENSIVE METABOLIC PANEL Routine 05/19/2024 11:40 AM EDT Candidiasis CBC WITH AUTO DIFFERENTIAL Routine 05/19/2024 11:40 AM EDT Candidiasis SARS COV2/INFLUENZA A/B AND RSV RNA QL NAAT Routine 05/19/2024 11:40 AM EDT Candidiasis OCT, RETINA - OU - BOTH EYES Routine 03/20/2024 10:30 AM EST RPE mottling of macula BASIC METABOLIC PANEL Routine 03/03/2024 7:58 AM EST Routine history and physical examination of adult CBC Routine 03/03/2024 7:58 AM EST Routine history and physical examination of adult HEMOGLOBIN A1C Routine 03/03/2024 7:58 AM EST Routine history and physical examination of adult HEPATIC FUNCTION PANEL Routine 7:58 AM EST Routine history and physical [...] Recently Relevant to Health Maintenance Results * SARS-CoV-2 RNA, Influenza A/B, and RSV RNA, Ql NAAT (05/19/2024 11:40 AM EDT) Influenza A PCR NEGATIVE Negative [facility] Influenza B PCR NEGATIVE Negative [facility] Resp Syncy Virus RNA Qual PCR NEGATIVE Negative [facility] SARS COV2 PCR NEGATIVE Negative [facility] Comment:All test results mus t be correlated with clinical findings.Negative results do not preclude SARS-CoV2, influenza Avirus, influenza B virus and/or RSV infectionand should not be used as the sole basis for treatment orother patient management decisions. Negative results must becombined with clinical observations, patient history, andepidemiological information.This test has not been evaluated for monitoring treatment ofinfection.This test has been authorized by the FDA under an EmergencyUse Authorization (EUA) for use by authorized laboratories.Testing performed on the [employer] GeneXpert utilizingreal-time RT-PCR.All SARS CoV2 and positive influenza A/B results arereported to [facility]. 05/19/2024 11:4 0 AM EDT 05/19/2024 11:41 AM EDT us Generic External Data Provider LAB MICROBIOLOGY - GENERAL ORDERABLES Final Result [facility] [address] [place] [address] [phone] * CBC auto differential (05/19/2024 11:40 AM EDT) White Blood Count 10.4 4.8 - 10.8 X10*3/uL [facility] Red Blood Count 4.86 4.20 - 5.50 X10*6/uL [facility] Hemoglobin 14.1 12.0 - 16.0 g/dl [facility] Hematocrit 40.3 37.0 - 47.0 % [facility] Mean Corpuscular Volume 82.9 80.0 - 98.0 fL [facility] Mean Corpuscular Hemoglobin 29.0 27.0 - 33.0 pg [facility] Mean Corpuscular HGB Conc 35.0 31.0 - 35.0 g/dl [facility] Red Cell Distribution Width 12.5 11.0 - 16.0 % [facility] Platelet Count 255 160 - 400 X10*3/uL [facility] Mean Platelet Volume 10.3 9.4 - 12.3 fL [facility] Neutrophils Percent Auto 71.0 45 - 73 % [facility] Imm Gran Pct Auto 0.3 0.0 - 0.4 % [facility] Lymphocytes Percent Auto 20.2 20 - 40 % [facility] Monocytes Percent Auto 4.9 2 - 11 % [facility] Eosinophils Percent Auto 3.1 0 - 4 % [facility] Basophils Percent Auto 0.5 0 - 2 % [facility] NRBC Pct Auto 0.0 0.0 - 0.2 /100WBC [facility] Neutrophils Absolute Auto 7.4 2.0 - 8.3 x10*3/uL [facility] Imm Gran Abs Auto 0.03 0.00 - 0.03 X10*3/uL [facility] Lymphocytes Absolute Auto 2.1 1.2 - 4.9 X10*3/uL [facility] Monocytes Absolute Auto 0.5 0.1 - 1.2 X10*3/uL [facility] Eosinophils Absolute Auto 0.3 0.0 - 0.4 X10*3/uL [facility] Basophils Absolute Auto 0.1 0.0 - 0.2 X10*3/uL [facility] NRBC Abs Auto 0.000 0.0 - 0.012 X10*3/uL [facility] 05/19/2024 11:4 0 AM EDT 05/19/2024 11:41 AM EDT Generic External Data Provider LAB BLOOD ORDERAB LES Final Result Performing Organization Address [facility]/ZIP Co de Phone Number [facility] [address] [place] [phone] * (ABNORMAL) C-reactive Protein (05/19/2024 11:40 AM EDT) [facility] C Reactive Protein 0.86(H) < or = 0.50 mg/dL [facility] 05/19/2024 11:4 0 AM EDT 05/19/2024 11:41 AM EDT Generic External Data Provider LAB BLOOD ORDERAB LES Final Result Performing Organization Address [facility]/ZIP Co de Phone Number [facility] [address] [place] [phone] * hCG, Total, Quantitative (05/19/2024 11:40 AM EDT) Pathologist [facility] HCG Quantitative <2 mIU/mL [facility] Comment:Weeks post LMP Appro ximate hCG(Last Menstrual Period) Range (mIU/ml)3 - 4 weeks 9 - 1304 - 5 weeks 75 - 2,6005 - 6 weeks 850 - 20,8006 - 7 weeks 4000 - 100,2007 - 12 weeks 11,500 - 289,70205 - 16 weeks 18,300 - 137,22011 - 29 weeks (2nd trimester) 1,400 - 53,33280 - 41 weeks (3rd trimester) 940 - 60,000The [facility] B- hCG assay is used for the early detection ofpregnancy; it cannot be used to diagnose any conditionunrelated to . If a B-hCG level is not supportedby the clinical evidence, results should be confirmed by analternative method (qualitative urine hCG, for example). 05/19/2024 11:4 0 AM EDT 05/19/2024 11:41 AM EDT us Generic External Data Provider LAB BLOOD ORDERAB LES Final Result [facility] [address] [place] [phone] * (ABNORMAL) Comprehensive Metabolic Panel (05/19/2024 11:40 AM EDT) Sodium 137 135 - 145 mmol/L [facility] Potassium 3.8 3.3 - 5.1 mmol/L [facility] Chloride 106 96 - 108 mmol/L [facility] Carbon Dioxide 24 22 - 29 mmol/L [facility] Anion Gap 11(L) 12 - 20 [facility] Urea Nitrogen (BUN) 10 9 - 16 mg/dL [facility] Creatinine, Serum 0.75 0.5 - 1.4 mg/dL [facility] Creatinine Clr Calc Pharmacy 83.6 [facility] Comment:Provided height and weight: 152.4 cm,63.2 kg.eGFR (calculated from the MDRD study equation) and eCrCl(calculated from the Cockcroft-Gault equation) are based ondifferent parameters and may not yield comparable results.If eCrCl result is absurd, please check patient'sheight/weight. Estimated Glomerular Filt Rate >60 [facility] Comment:Chronic Kidney Disea se: Estimated GFR < 60 mL/min/1.92u2Hnegwr Kidney Disease: Estimated GFR < 15 mL/min/1.73m2 Glucose 141(H) 60 - 115 mg/dL [facility] Calcium 9.4 8.4 - 10.2 mg/dL [facility] Bilirubin, Total 0.3 0.0 - 1.0 mg/dL [facility] Aspartate Amino Transferase 23 5 - 31 U/L [facility] Alanine Aminotransferase 13 0 - 31 U/L [facility] Total Protein 7.7 6.5 - 8.0 g/dL [facility] Albumin Level 4.2 3.5 - 5.0 g/dL [facility] Alkaline Phosphatase 105 39 - 117 U/L [facility] 05/19/2024 11:4 0 AM EDT 05/19/2024 11:41 AM EDT us Generic External Data Provider LAB BLOOD ORDERAB LES Final Result [facility] [address] [place] [phone] * Vitamin D, 25-Hydroxy, Total, Immunoassay (03/03/2024 7:58 AM EST) Vitamin D 25-OH Total 51.1 >30 ng/mL [facility] Comment:Health Based Referen ce Values*< 20 ng/mL [id number] ng/mL Insufficient> 30 ng/mL Sufficient*Mirian OSORIO. N [...] DO LAB BLOOD ORDERABLES Final R esult [facility] [address] [place] [phone] * CBC (03/03/2024 7:58 AM EST) White Blood Count 9.4 4.8 - 10.8 X10*3/uL [facility] Red Blood Count 4.99 4.20 - 5.50 X10*6/uL [facility] Hemoglobin 14.3 12.0 - 16.0 g/dl [facility] Hematocrit 41.6 37.0 - 47.0 % [facility] Mean Corpuscular Volume 83.4 80.0 - 98.0 fL [facility] Mean Corpuscular Hemoglobin 28.7 27.0 - 33.0 pg [facility] Mean Corpuscular HGB Conc 34.4 31.0 - 35.0 g/dl [facility] Red Cell Distribution Width 12.9 11.0 - 16.0 % [facility] Platelet Count 293 160 - 400 X10*3/uL [facility] Mean Platelet Volume 10.8 9.4 - 12.3 fL [facility] NRBC Pct Auto 0.0 0.0 - 0.2 /100WBC [facility] NRBC Abs Auto 0.000 0.0 - 0.012 X10*3/uL [facility] Blood Venous blood specimen / Unknown 03/03/2024 7:58 AM EST 03/03/2024 11:35 AM EST Jackie Kaiser DO LAB BLOOD ORDERABLES Final R esult Performing Organization Address City/[facility]/ZIP Co de Phone Number [facility] [address] [place] [phone] * TSH (03/03/2024 7:58 AM EST) Thyroid Stimulating Hormone 2.62 0.32 - 4.0 uIU/mL [facility] Comment:Note: A sustained TS H level above 2.5 uIU/mL may warrant further investigation. TSH 3rd Generation ([facility]) Blood Venous blood specimen / Unknown 03/03/2024 7:58 AM EST 03/03/2024 11:35 AM EST Jackie Kaiser LAB BLOOD ORDERABLES Final R esult Performing Organization Address [facility] Co de Phone Number [facility] [address] [place] [phone] * T4, Free (03/03/2024 7:58 AM EST) Free T4 (Free Thyroxine) 0.92 0.71 - 1.85 ng/dL [facility] Blood Venous blood specimen / Unknown 03/03/2024 7:58 AM EST 03/03/2024 11:35 AM EST Jackie Kaiser LAB BLOOD ORDERABLES Final R esult Performing Organization Address City/[facility] Co de Phone Number [facility] [address] [place] [phone] * Hemoglobin A1c (03/03/2024 7:58 AM EST) Hemoglobin A1c 4.7 <6.0 % [facility] Comment:Hemoglobin A1C Refer ence Range Adults: 4.8 - 6.0 % Non diabetic: < 6.0 % Goal: < 7.0 %Additional Action Suggested: > 8.0 %Note: Hemoglobin A1c results are invalid for patients with abnormal amounts of HbF. Blood transfusions may impact the HbA1c concentration in the patient sample. Estimated Average Glucose 88 mg/dL [facility] Comment:eAG = Estimated ave rage glucose which is %A1C expressed asaverage glucose, using the formula of the Y4X-OtflphkXnjenru Glucose study (ADAG), Diabetes Care, Vol.31,#8,Oct. 2007 Blood Venous blood specimen / Unknown 03/03/2024 7:58 AM EST 03/03/2024 11:35 AM EST Jackie Job DO LAB BLOOD ORDERABLES Final R esult Performing Organization Address [facility] Co de Phone Number [facility] [address] [place] [phone] * Hepatic Function Panel (03/03/2024 7:58 AM EST) Bilirubin, Total 0.5 0.0 - 1.0 mg/dL [facility] Bilirubin, Direct 0.2 0.0 - 0.5 mg/dL [facility] Aspartate Amino Transferase 25 5 - 31 U/L [facility] Alanine Aminotransferase 15 0 - 31 U/L [facility] Total Protein 7.3 6.5 - 8.0 g/dL [facility] Albumin Level 4.3 3.5 - 5.0 g/dL [facility] Alkaline Phosphatase 82 39 - 117 U/L [facility] Blood Venous blood specimen / Unknown 03/03/2024 7:58 AM EST 03/03/2024 11:35 AM EST Jackie Job DO LAB BLOOD ORDERABLES Final R esult Performing Organization Address [facility] Co de Phone Number [facility] [address] [place] [phone] * (ABNORMAL) Lipid Panel, Standard (03/03/2024 7:58 AM EST) Triglycerides 137 <150 mg/dL [facility] Comment:Desirable Triglyceri de: less than 150 mg/dLBorderline High Triglyceride 150-199 mg/dLHigh Triglyceride: 200-499 mg/dLVery High Triglyceride: greater than or equal to 5OO mg/dL Cholesterol 212(H) <200 mg/dL [facility] Comment:Desirable Cholestero l: less than 200 mg/dLBorderline High Cholesterol: 200-239 mg/dLHigh Cholesterol: greater than 239 mg/dL LDL Cholesterol Calculated 125(H) <100 mg/dL [facility] Comment:Desirable LDL: less than 100 mg/dLNear Optimal/Above Optimal LDL: 110- 129 mg/dLBorderline High LDL: 130-159 mg/dLHigh LDL: 160-189 mg/dLVery High LDL: greater than or equal to 190 mg/dL HDL Cholesterol 60 >40 mg/dL [facility] Comment:Desirable HDL: great er than 40 mg/dL Note: This HDL assay may give artificially low results in patients with liver disease. Blood Venous blood specimen / Unknown 03/03/2024 7:58 AM EST 03/03/2024 11:35 AM EST us Jackie Kaiser DO LAB BLOOD ORDERABLES Final R esult [facility] [address] [place] [phone] * (ABNORMAL) Basic Metabolic Panel (03/03/2024 7:58 AM EST) Sodium 135 135 - 145 mmol/L [facility] Potassium 3.6 3.3 - 5.1 mmol/L [facility] Chloride 106 96 - 108 mmol/L [facility] Carbon Dioxide 22 22 - 29 mmol/L [facility] Anion Gap 11(L) 12 - 20 [facility] Urea Nitrogen (BUN) 12 9 - 16 mg/dL [facility] Creatinine, Serum 0.72 0.5 - 1.4 mg/dL [facility] Estimated Glomerular Filt Rate >60 [facility] Comment:Chronic Kidney Disea se: Estimated GFR < 60 mL/min/1.26y4Xjvpqn Kidney Disease: Estimated GFR < 15 mL/min/1.73m2 Glucose 77 60 - 115 mg/dL [facility] Calcium 9.2 8.4 - 10.2 mg/dL [facility] Blood Venous blood specimen / Unknown 03/03/2024 7:58 AM EST 03/03/2024 11:35 AM EST us Jackie Kaiser DO LAB BLOOD ORDERABLES Final R esult [facility] [address] [place] [phone] * Hepatitis C Antibody with Reflex to HCV, RNA, Quantitative, Real-Time PCR (06/10/2022 9:59 AM EDT) Hepatitis C Antibody NON-REACT ANTONI NON-REACT ANTONI [facility] [place] [employer] Index 0.06 <1.00 [facility] [place] [facility] [facility] [employer] Comment: HCV antibody was non-reactive. There is no laboratory evidence of HCV infection. In most cases, no further action is required. However, if recent HCV exposure is suspected, a test for HCV RNA (test code 51916) is suggested. For additional information please refer to http://education.[employer]/faq/MVQ79i9 (This link is being provided for informational/ educational purposes only.) Blood Venous blood specimen / Unknown 06/10/2022 9:59 AM EDT 06/10/2022 10:00 AM EDT Narrative [facility] - 06/10/2022 8:37 PM EDT FASTING:YES FASTING: YES Jim Barker MD LAB BLOOD ORDERABLES Final Result Performing Organization Address City/[facility]/ZIP Co de Phone Number [facility] [address], [place] [phone] [facility] [place] [facility] [employer] [address] [place] [phone] * HIV-1/2 Antigen and Antibodies, Fourth Generation, with Reflexes (06/10/2022 9:59 AM EDT) HIV Antigen/Antibody, 4th Generation NON-REAC TIVE NON-REAC TIVE [facility] [place] [facility] Comment: HIV-1 antigen and HIV-1/HIV-2 antibodies were [...] ?? For additional information please refer to http://[employer]hostruck/faq/QHH727 (This link is being provided for informational/ educational purposes only.) The performance of this assay has not been clinically validated in patients less than 2 years old. Blood Venous blood specimen / Unknown 06/10/2022 9:59 AM EDT 06/10/2022 10:00 AM EDT Narrative [facility] - 06/10/2022 8:37 PM EDT FASTING:YES FASTING: YES Jim Barker MD LAB BLOOD ORDERABLES Final Result [facility] [address], [place] [address] [facility] [address] [place] [phone] * THINPREP TIS PAP AND HPV mRNA E6/E7, CT/NG, TRICH (11/05/2021 11:00 AM EDT) Chlamydia trachomatis RNA, TMA, Urogenital NOT DETECTED NOT DETECTED [facility] Clinical Information: None given [facility] COMMENT SEE [facility]MENT [facility] Comment: The analytical performance characteristics of this assay, when used to test SurePath(TM) specimens have been determined by [facility]. The modifications have not been cleared or approved by the FDA. This assay has been validated pursuant to the CLIA regulations and is used for clinical purposes. ?? For additional information, please refer to https://[employer]hostruck/faq/TKI535 (This link is being provided for information/ [...] has been evaluated with computer assisted technology. [facility] Croze Machine Operator: SEE COMMENT [facility] Comment: GSG, CT(ASCP) CT screening location: [address] ??[phone] HPV nRNA E6/E7 Not Detected Not Detected [facility] Comment: Methodology: Trailer Technician-Mediated Amplification This assay detects E6/E7 viral messenger RNA (mRNA) from 14 high-risk HPV types (16,18,31,33,35,39,45,51,52,56,58,59,66,68). ? Cervical sources are required for HPV testing. If a vaginal source from a patient who has had a total hysterectomy with removal of cervix was ?? submitted, please contact the testing laboratory for alternative testing options. ?? For additional information, please refer to [email or web address] (This link if provided for information/ educational purposes only.) Interpretation/Re sult: Negative for intraepithelial lesion or malignancy. [facility] LMP: 10/27/2021 [email or web address] Neisseria gonorrhoeae RNA, TMA, Urogenital NOT DETECTED NOT DETECTED [facility] Prev. BX: NONE GIVEN [facility] Prev. PAP: NIL PAP 06/2018 [facility] SOURCE: None given [facility] Statement Of Adequacy: SEE COMMENT [facility] Comment: Satisfactory for evaluation. Endocervical/transformation zone component present. Trichomonas vaginalis, QL, TMA, PAP Vial NOT DETECTED NOT DETECTED [facility] Comment: The analytical performance characteristics of this assay have been determined by [employer]. The modifications have not been cleared or approved by the FDA. This assay has been validated pursuant to the CLIA regulations and is used for clinical purposes. ?? For additional information, please refer to [email or web address] (This link is being provided for information/ educational purposes only.) ?? 11/05/2021 11:0 0 AM EDT us Stefania Reno CNM LAB PATHOLOGY ORDERABLES Final Result [facility] [address] [place] [address], from Last 3 Months or Most Recently Relevant to Health Maintenance Insurance [facility] STANDARD DENTAL-[facility] MEDICAID STAND ADULT Care Teams Bench Hand Relationship Specialty Start Date End Date Jim Padilla MD [address] [place] [id number] PCP - General Internal Medicine 07/18/14
--- OUTSIDE RECORDS SUMMARY | 2024-05-19 14:46 | XMS_ITS | Encounter Summary ---
Author Organization [employer] Address [address] [place] [address] Care Team Providers Care Silk Brusher Name Role Phone Jim Padilla MD Primary Care Provide r Reason for Visit * Reason Onset Date Comments Appointment 08/21/2022 Encounter Details Date Type Department Care Team ([facility] st Contact Info) Description 08/21/2022 Telephone [facility] [address] [place] [address] Barak Santa DDS [address] [place], [place] [phone] Appointment Social History Tobacco Use Types Packs/Day [...] would like appt scheduled with provider for taoist DR documented in this encounter Plan of Treatment Upcoming Encounters Date Type Department Care Team (Late st Contact Info) Description 08/17/2024 10:15 AM EDT Office Visit [facility] [address] [place] [address] Jim Padilla MD [address] [place] [phone] documented as of this encounter Visit Diagnoses Not on filedocumented in this encounter Additional Health Concerns Assessment Noted Time PHQ-9 Depression Total Score: 0 04/14/19 23 9:48 AM EST documented as of this encounter Care Teams Silk Brusher Relationship Specialty Start Date End Date Jim Padilla MD [address] [place] [id number] PCP - General Internal Medicine 07/18/14 documented as of this encounter
--- OUTSIDE RECORDS SUMMARY | 2024-05-19 14:46 | XMS_ITS | Encounter Summary ---
Author Organization [employer] [facility] Address [address] [place] [address] Care Team Providers Care Manager Lvn Name Role Phone Jim Padilla MD Primary Care Provide r Encounter Details Date Type Department Care Team (Latest Contact Info) Description 05/12/2018 Abstract [facility] CONVERSIONS Dental, Provider, DDS Social History [...] [facility] [address] [place] [address] Jim Padilla MD [address] [place] [address] documented as of this encounter Visit Diagnoses Not on filedocumented in this encounter Care Teams Manager Lvn Relationship Specialty Start Date End Date Jim Padilla MD [address] [place] [address] PCP - General Internal Medicine 07/18/14 documented as of this encounter
--- OUTSIDE RECORDS SUMMARY | 2024-05-19 14:46 | XMS_ITS | Encounter Summary ---
Author Organization [employer] Address [address] [facility] [address] [place] [address] Care Team Providers Care Manager It Security Name Role Phone Jim Padilla MD Primary Care Provide r Encounter Details Date Type Department Care Team ([facility] st Contact Info) Description 05/19/2024 Population Health Risk Score [facility] (C3) Department [address] [phone] Provider, Population Health Generic Social History Tobacco Use Types Packs/Day Years [...] Description 08/17/2024 10:15 AM EDT Office Visit [facility] [address] [place] [address] Jim Padilla MD [address] [place] [address] documented as of this encounter Visit Diagnoses Not on filedocumented in this encounter Additional Health Concerns Assessment Noted Time PHQ-9 Depression Total Score: 5 08/24/19 24 11:42 AM EDT documented as of this encounter Care Teams Manager It Security Relationship Specialty Start Date End Date Jim Padilla MD [address] [place] [address] PCP - General Internal Medicine 07/18/14 documented as of this encounter
--- OUTSIDE RECORDS SUMMARY | 2024-05-19 14:46 | XMS_ITS | Encounter Summary ---
Author Organization [employer] [facility] Address [address] [place] [address] Care Team Providers Care Milk House Worker Name Role Phone Jim Padilla MD Primary Care Provide r Encounter Details Date Type Department Care Team (Latest Contact Info) Description 04/05/2020 Abstract [facility] CONVERSIONS Dental, Provider, DDS Social History Tobacco [...] Description 08/17/2024 10:15 AM EDT Office Visit [facility] [address] [place] [address] Jim Padilla MD [address] [place] [address] documented as of this encounter Visit Diagnoses Not on filedocumented in this encounter Care Teams Milk House Worker Relationship Specialty Start Date End Date Jim Padilla MD [address] [place], [place] [phone] PCP - General Internal Medicine 07/18/14 documented as of this encounter
--- OUTSIDE RECORDS SUMMARY | 2024-05-19 14:46 | XMS_ITS | Encounter Summary ---
Author Organization [employer] Address [address] [facility] [address] [place] [address] Care Team Providers Care Development Engineer Name Role Phone Jim Padilla MD Primary Care Provide r Encounter Details Date Type Department Care Team (Latest Contact Info) Description 05/19/2024 Travel Social History Tobacco Use Types Packs/Day Years [...] Description 08/17/2024 10:15 AM EDT Office Visit [facility] [address] [place] [address] Jim Padilla MD [address] [place] [address] documented as of this encounter Visit Diagnoses Not on filedocumented in this encounter Additional Health Concerns Assessment Noted Time PHQ-9 Depression Total Score: 5 08/24/19 24 11:42 AM EDT documented as of this encounter Care Teams Development Engineer Relationship Specialty Start Date End Date Jim Padilla MD [address] [place] [id number] PCP - General Internal Medicine 07/18/14 documented as of this encounter
--- OUTSIDE RECORDS SUMMARY | 2024-05-19 14:46 | XMS_ITS | Encounter Summary ---
Author Organization [employer] Address [address] [facility] [address] [place] [address] Care Team Providers Care Real Estate Economist Name Role Phone Jim Padilla MD Primary Care Provide r Encounter Details Date Type Department Care Team ([facility] Contact Info) Description 04/28/2024 9:00 AM EST Office Visit [facility] [address] [place] [address] Ángel, Mari, OD [address] [place] [address] Myopia of both eyes (Primary Dx) Social [...] Description 08/17/2024 10:15 AM EDT Office Visit [facility] [address] [place] [address] Jim Padilla MD [address] [place] [address] documented as of this encounter Visit Diagnoses Diagnosis Myopia of both eyes- Primary documented in this encounter Additional Health Concerns Assessment Noted Time PHQ-9 Depression Total Score: 5 08/24/19 24 11:42 AM EDT documented as of this encounter Care Teams Real Estate Economist Relationship Specialty Start Date End Date Jim Padilla MD [address] [place] [address] PCP - General Internal Medicine 07/18/14 documented as of this encounter
[2024-05-19] MEDS: Butalb/Acetamin/Caff 50/325/40 TABLET 2 TAB PO (14:58)
[2024-05-19] MEDS: Metoclopramide HCl 10 MG/2 ML VIAL IVPUSH (14:59)
[2024-05-19] MEDS: diphenhydrAMINE HCL 50 MG/ML VIAL IVPUSH (15:02)
[2024-05-19 15:11] LABS: Magnesium 1.7 mg/dL (1.6-2.6)
[2024-05-19] MEDS: Magnesium Sulfate/H2O 2 GM/50 ML PIGGYBACK IV (15:15)
[2024-05-19] MEDS: dexAMETHasone sod phosphate 4 MG/ML VIAL 8 MG IVPUSH (15:18)
[2024-05-19 15:24] LABS: Erythrocyte Sedimentation Rate 14 MM/HR (0-20)
[2024-05-19 16:09] VITALS: BP 114/64; PULSE 70; RESP 18; TEMP 36.4; O2SAT 98
[2024-05-19] MEDS: Ketorolac Tromethamine 30 MG/ML VIAL IVPUSH (17:46)
[2024-05-19 18:09] VITALS: BP 114/64; PULSE 70; RESP 18; TEMP 36.4; O2SAT 98
== END 2024-05-19 18:10 | disposition home or self-care (01) ==
PROVIDERS: Physician Assistant; Registered Nurse Emergency; Emergency Provider Emergency Medicine; PCP Internal Medicine
DX: G43.909 Migraine, unspecified, not intractable, without status migrainosus (principal); L56.8 Other specified acute skin changes due to ultraviolet radiation; F17.210 Nicotine dependence, cigarettes, uncomplicated; Z79.899 Other long term (current) drug therapy; Z03.818 Encounter for observation for suspected exposure to other biological agents ruled out
CPT/HCPCS: 0241U; 70450; 80053; 83735; 84702; 85025; 85652; 86140; 96361; 96374; 96375; 99284; J1100; J1200; J1885; J2765; J3475

== ENCOUNTER → 2024-05-19 11:32 | Outpatient (BNV) | payer MEDICAID, SELFPAY | PROVIDERS: Emergency Provider Emergency Medicine; PCP Internal Medicine; Visit Provider Radiology Diagnostic Radiology | DX: R51.9 Headache, unspecified (principal) | CPT/HCPCS: 70450 ==

== ENCOUNTER 2024-09-11 12:42 | Outpatient (REF) | payer MEDICAID, SELFPAY ==
--- OUTSIDE RECORDS SUMMARY | 2024-09-11 13:15 | XMS_ITS | Encounter Summary ---
Author Organization [employer] Address [address] [place] [id number] Care Team Providers Care Exercise Physiologist Certified Name Role Phone Jim Padilla MD Primary Care Provide r Reason for Visit * Reason Onset Date Comments Daniel Endo therapy 07/14/2024 Encounter Details Date Type Department Care Team ([facility] st Contact Info) Description 07/14/2024 Telephone [facility] [address] [place] [address] Niraj Sanchez DDS [address] [place] [address] Daniel Endo therapy Social History Tobacco Use Types Packs/Day Years [...] encounter Miscellaneous Notes * Telephone Encounter - Richard Shaw - 07/14/2024 10:20 AM EDT Patient called saying that she really does not want to wait until August to get the RCT done. She stated that someone told her she can go to [place]. Patient has been informed that there is a waiting list for Dr. Méndez in [facility]. She is looking to see if she can be seen sooner in [facility]. documented in this encounter Plan of Treatment Upcoming Encounters Date Type Department Care Team (Late st Contact Info) Description 09/12/2024 9:00 AM EDT Office Visit [facility] [address] [place], [place] [phone] Niraj Sanchez DDS [address] [place] [address] documented as of this encounter Visit Diagnoses Not on filedocumented in this encounter Additional Health Concerns Assessment Noted Time PHQ-9 Depression Total Score: 5 06/18/20 24 11:42 AM EDT documented as of this encounter Care Teams Exercise Physiologist Certified Relationship Specialty Start Date End Date Jim Padilla MD [address] [place] [phone] PCP - General Internal Medicine 07/18/14 documented as of this encounter
== END 2024-09-11 12:43 | disposition home or self-care (01) ==
LOC: HO.MAMMO 12:42
PROVIDERS: PCP Internal Medicine; Visit Provider Internal Medicine
DX: Z12.31 Encounter for screening mammogram for malignant neoplasm of breast (principal)
CPT/HCPCS: 77063; 77067

== ENCOUNTER → 2024-09-11 13:15 | Outpatient (BNV) | payer MEDICAID, SELFPAY | PROVIDERS: PCP Internal Medicine; Visit Provider Internal Medicine | DX: Z12.31 Encounter for screening mammogram for malignant neoplasm of breast (principal) | CPT/HCPCS: 77063; 77067 ==

== ENCOUNTER 2024-10-17 11:10 | Outpatient (AMB) | payer MEDICAID, SELFPAY ==
--- NOTE | 2024-10-17 11:55 | A.OFFVIS_ITS ---
Intake Visit Reasons: 2m migraine Boat Repairer Required: Yes Boat Repairer Name: [id number] Allergies peanut Allergy (Intermediate, Verified 05/19/24 11:32) Sneezing Medication List - Last Reconciled 10/17/24 by Cary Malik CNP xqawccctbt-stnabrzewfftf-ijrv 50-300-40 mg (Fioricet) 1 cap PO Q6H PRN dupilumab (Dupixent) 300 mg (2 mL) subcut Q2W fluticasone propion-salmeterol 500-50 mcg/dose (Advair Diskus) 1 ea PO BID ipratropium bromide 2 sprays intranasal TID-QID PRN ketorolac 10 mg PO Q6H PRN sumatriptan succinate take 1 tab at onset of headache; if no relief, may repeat 1 tab after at least 2 hrs; max = 2 tabs/24 hrs PO topiramate 50 mg PO BID HPI Comments Details: 39-year-old woman with migraines that started when she was in her early 20?s. She has family history of migraine in her father. In 05/2024, she had 3 days of continuous headaches and was seen at [facility] where she had normal labs and negative head CT. Headaches were happening about 2x, lasting several hours, and were frequently associated with photophobia, sonophobia, nausea, and sometimes vomiting. Headaches were better with topiramate twice a day. No medication side effects. She had 2 migraines in last 2 months. Sumatriptan as needed helped some. Triggers included certain perfumes. [facility] Medical History (Updated 10/17/24 @ 11:58 by Cary Malik CNP) Migraine Patient denies medical problems Social History (Updated 05/17/24 @ 09:52 by GARTH Stephens) Alcohol intake: never Patient Tobacco Use Status: Current someday Tobacco user Tobacco use type: Cigarette Cigarettes Per Day: 2 Review of Systems Const Denies chills, Denies daytime sleepiness, Reports difficulty sleeping, Denies fatigue, Denies fever(s), Denies frequent falls, Reports headache(s), Denies increased appetite, Denies poor appetite, Denies snoring, Denies weakness, Denies weight gain and Denies weight loss Eyes Denies loss of vision ENT Denies vertigo, Denies dizziness, Reports headache(s) and Denies neck pain Card Denies chest pain at rest, Denies chest pain with activity, Denies syncope, Denies leg edema, Denies palpitations, Denies dyspnea and Denies dyspnea on exertion Resp Denies cough, Denies dyspnea, Denies dyspnea on exertion and Denies snoring GI Denies abdominal pain, Denies constipation, Denies heartburn, Denies diarrhea and Denies nausea Denies urinary frequency, Denies urinary incontinence and Denies urinary urgency Musc Denies abnormal gait, Denies back pain, Denies myalgias, Denies arthralgias, Den ies neck pain, Denies numbness and Denies tingling Neuro Denies abnormal gait, Denies vertigo, Denies dizziness, Denies syncope, Denies frequent falls, Reports headache(s), Denies lack of coordination, Denies loss of vision, Denies memory loss, Denies numbness, Denies Other visual disturbances, Denies restless legs, Denies seizure-like activity, Denies tingling, Denies par esthesias, Denies tremor(s) and Denies weakness Psych Denies anxiety, Denies depression, Denies auditory hallucinations, Denies memory loss and Denies visual hallucinations Endo Denies fatigue and Denies palpitations Physical Exam Const Other: General Appearance:? normal, in no acute distress. Heart:? S1, S2 normal, no murmurs. Lungs:? clear anteriorly and posteriorly. Musculoskeletal:? normal. Extremities:? no edema. Psych:? alert, oriented, cognitive function intact, cooperative with exam. Neuro Other: Abnormal Neurological Findings:?none.? Mental Status: alert and oriented X 3. Normal attention, orientation, memory, and affect. Cranial Nerves: Pupils are equal, round, and reactive to light. External ocular muscles are intact. Visual becker are full, no ptosis. Face is symmetrical, no facial weakness or droop. Facial sensations are normal. Tongue protrudes in midline. Palate elevates symmetrically. Shoulder shrugging is normal Motor Examination: Normal muscle tone, bulk and strength. No atrophy or fasciculations. No drift of the extended upper extremities. DTR 2+. Plantars are flexor. Sensory Exam: Normal light touch, temperature, pinprick, vibration, and joint- position sensations. Rhomberg sign is absent. Coordination: No ataxia. No titubation. Ltfroy-ye-dykv, npwt-umcs-jeji test, and rapid alternating movements were normal. Gait Exam: Within normal limits. Cerebellar Signs: Hhxydp-yd-tkco and ynlt-px-tkcr is normal. No dysdiadochokinesia. Extrapyramidal System: No tremor, rigidity with normal facial expressions. No bradykinesia. No bradyphrenia. Normal arm swing and posture. No propulsion or retropulsion. Speech: Normal. No dysphasia or dysarthria. Assessment & Plan Assessment & Plan (1) Migraine: Code(s): G43.909 - Migraine, unspecified, not intractable, without status migrainosus Category: Medical Qualifiers: Migraine type: unspecified Status migrainosus presence: without status migrainosus Intractability: not intractable Qualified Code(s): G43.909 - Migraine, unspecified, not intractable, without status migrainosus Plan: Continue topiramate 50mg 1 tablet twice a day Continue sumatriptan 100mg 1 tablet as needed for migraines Continue ondansetron 4mg 1 tablet as needed for nausea Coding Level of Care Code Est Pt Level 3 (21331) Diagnoses Migraine without status migrainosus, not intractable, unspecified migraine type G43.909 Migraine type: unspecified Status migrainosus presence: without status migrainosus Intractability: not intractable
--- OUTSIDE RECORDS SUMMARY | 2024-10-17 12:18 | XMS_ITS | Encounter Summary ---
Author Organization [employer] Address [address] [place] [address] Care Team Providers Care Organ Tuner Electronic Name Role Phone Jim Padilla MD Primary Care Provide r Reason for Visit * Reason Onset Date Comments Appointment 08/21/2022 Encounter Details Date Type Department Care Team ([facility] st Contact Info) Description 08/21/[address] [facility] [address] [place] [address] Barak Santa DDS [address] [place] [address] Appointment Social History Tobacco Use Types Packs/Day [...] would like appt scheduled with provider for christian DR documented in this encounter Plan of Treatment Upcoming Encounters Date Type Department Care Team (Late st Contact Info) Description 10/20/2024 9:00 AM EDT Office Visit [facility] [address] [place] [address] Niraj Sanchez DDS [address] [place] [address] documented as of this encounter Visit Diagnoses Not on filedocumented in this encounter Additional Health Concerns Assessment Noted Time PHQ-9 Depression Total Score: 0 04/14/19 23 9:48 AM EST documented as of this encounter Care Teams Organ Tuner Electronic Relationship Specialty Start Date End Date Jim Padilla MD [address] [place] [address] PCP - General Internal Medicine 07/18/14 documented as of this encounter
== END 2024-10-17 12:06 | disposition home or self-care (01) ==
LOC: HO.HSM 11:11
PROVIDERS: PCP Internal Medicine; Referring Provider Internal Medicine; Visit Provider Registered Nurse
DX: G43.909 Migraine, unspecified, not intractable, without status migrainosus (principal)
CPT/HCPCS: 99213

== ENCOUNTER → 2024-10-17 11:10 | Outpatient (BNVA) | payer MEDICAID, SELFPAY | PROVIDERS: PCP Internal Medicine; Referring Provider Internal Medicine; Visit Provider Registered Nurse | DX: G43.909 Migraine, unspecified, not intractable, without status migrainosus (principal) | CPT/HCPCS: 99212 ==